=== PATIENT | female | born 1970 | race Caucasian/White ===

== ENCOUNTER 2022-02-18 12:46 | Outpatient (CLI) | payer OTHER, SELFPAY ==
--- NOTE | 2022-02-18 13:00 | CRLHL7_ITS ---
For Patients: As a result of the Cures Act, medical imaging exams and procedure reports are released immediately into your electronic medical record. You may view this report before your referring provider. If you have questions, please contact your health care provider. BILATERAL DIGITAL SCREENING MAMMOGRAM WITH TOMOSYNTHESIS AND COMPUTER-AIDED DETECTION, 02/18/2022 CLINICAL HISTORY: Routine screening exam. COMPARISON: 01/10/2021, 10/03/2019, 07/26/2018, 06/29/2017. TECHNIQUE: Digital mammogram in CC and MLO projections including computer-aided detection (CAD). Tomosynthesis utilized. BREAST COMPOSITION: The breasts are heterogeneously dense, which may obscure small masses. FINDINGS: RIGHT Breast: No suspicious findings. Intact breast implant. LEFT Breast: Post biopsy changes. Focus of possible architectural distortion within the upper LEFT breast 5 cm from the nipple 12-1 o`clock. IMPRESSION: LEFT breast asymmetry/mass. RECOMMENDATIONS: Additional mammographic views of the LEFT breast including three spot compression CC and 3D spot compression MLO, both with implant-displaced. LEFT breast ultrasound may also be required. The [facility] will be contacting the patient to arrange for this additional study. BI-RADS Category 0: Incomplete: Need additional Imaging Evaluation and/or Prior Mammograms for Comparison A lay language report of this examination will be provided to the patient. Dictated by Noman Srivastava MD @ 02/19/2022 8:41:26 AM flores/Dictated by: Noman Srivastava MD @ 02/19/2022 8:41:00 AM (Electronically Signed)
== END 2022-02-18 12:47 | disposition home or self-care (01) ==
LOC: MAMMO 12:48
PROVIDERS: PCP Internal Medicine; Visit Provider Internal Medicine
DX: Z12.31 Encounter for screening mammogram for malignant neoplasm of breast (principal); N63.20 Unspecified lump in the left breast, unspecified quadrant; R92.2 Inconclusive mammogram
CPT/HCPCS: 77063; 77067

== ENCOUNTER 2022-02-20 08:30 | Outpatient (CLI) | payer OTHER, SELFPAY ==
--- NOTE | 2022-02-20 08:45 | CRLHL7_ITS ---
For Patients: As a result of the Cures Act, medical imaging exams and procedure reports are released immediately into your electronic medical record. You may view this report before your referring provider. If you have questions, please contact your health care provider. DIGITAL DIAGNOSTIC LEFT MAMMOGRAM USING TOMOSYNTHESIS AND COMPUTER-AIDED DETECTION, 02/20/2022 LEFT BREAST ULTRASOUND, 02/20/2022 CLINICAL HISTORY: LEFT breast mass/asymmetry. COMPARISON: 02/18/2022, 01/10/2021, 10/03/2019, 07/26/2018. TECHNIQUE: Digital LEFT mammogram in two projections. Tomosynthesis and CAD utilized. Real-time ultrasound imaging of LEFT breast with imaging documentation. Scanning was performed by both the technologist and the radiologist. BREAST COMPOSITION: The breast is heterogeneously dense, which may obscure small masses. FINDINGS: 3D spot compression CC/MLO left breast mammogram submitted. LEFT breast implant intact. Persistent suspicious lesion within the upper LEFT breast 4 cm from the nipple with associated microcalcification. Targeted LEFT breast ultrasound performed at 12 o`clock 4 cm from the nipple. In this location there is an ill-defined area of decreased echogenicity. This is taller than wide and demonstrates distal acoustic shadowing, measuring 1.0 x 0.7 x 0.7 cm. IMPRESSION: Suspicious 1 cm taller than wide ill-defined hypoechoic shadowing lesion LEFT breast 12 o`clock 4 cm from the nipple. RECOMMENDATIONS: Ultrasound-guided core needle biopsy. Results and recommendations discussed with the patient. BI-RADS Category 4: Suspicious A lay language report of this examination will be provided to the patient. Dictated by Noman Srivastava MD @ 02/20/2022 10:01:47 AM jj/Dictated by: Noman Srivastava MD @ 02/20/2022 10:01:00 AM (Electronically Signed)
--- NOTE | 2022-02-20 09:15 | CRLHL7_ITS ---
For Patients: As a result of the Cures Act, medical imaging exams and procedure reports are released immediately into your electronic medical record. You may view this report before your referring provider. If you have questions, please contact your health care provider. PLEASE SEE DIGITAL DIAGNOSTIC LEFT MAMMOGRAM PERFORMED SAME DAY CRL:[email or web address] hearn/Dictated by: Noman Srivastava MD @ 02/20/2022 10:01:00 AM (Electronically Signed)
== END 2022-02-20 08:31 | disposition home or self-care (01) ==
LOC: MAMMO 08:31
PROVIDERS: PCP Internal Medicine; Visit Provider Internal Medicine
DX: N63.20 Unspecified lump in the left breast, unspecified quadrant (principal); R92.8 Other abnormal and inconclusive findings on diagnostic imaging of breast
CPT/HCPCS: 76642; 77065; G0279

== ENCOUNTER 2022-02-25 09:00 | Outpatient (CLI) | payer OTHER, SELFPAY ==
--- NOTE | 2022-02-25 09:15 | CRLHL7_ITS ---
For Patients: As a result of the Century Cures Act, medical imaging exams and procedure reports are released immediately into your electronic medical record. You may view this report before your referring provider. If you have questions, please contact your health care provider. ULTRASOUND-GUIDED BREAST BIOPSY AND POST-BIOPSY DIGITAL MAMMOGRAM FOR BIOPSY MARKER PLACEMENT CLINICAL HISTORY: Suspicious lesion. COMPARISON STUDIES: Mammograms 02/20/2022, 02/18/2022. Ultrasound 02/20/2022. TECHNIQUE: Real-time ultrasound with image documentation was used for targeting the breast lesion. Core biopsy specimens were obtained using an 18 gauge Temno biopsy needle. Post-biopsy CC and ML digital mammograms were obtained to document position of the biopsy marker. CONSENT and TIME OUT: The procedure, risks, and alternatives were explained to the patient and a consent was signed. [place] Protocol was followed including pre-procedure verification that relevant information/documentation was available, reviewed and properly matched to the patient; consent accurate and complete; and equipment and supplies available. Time Out was conducted just prior to starting procedure to verify the four required elements: patient identity, correct side/site marked (if applicable), procedure, relevant images/results properly labeled and displayed (if applicable). PROCEDURE: The patient was positioned supine on the ultrasound table. The breast was prepped with ChloraPrep. 6 cc 1 percent lidocaine used for local anesthesia. Core samples were obtained. A sterile metal biopsy clip was placed percutaneously to sreedhar the lesion position within the breast. The specimens were placed in 10% formalin and sent to the pathology department. Pressure was held on the biopsy site until all bleeding subsided. The skin incision was closed with Steri-Strips. An ice pack was positioned over the biopsy site. Post-biopsy instructions were reviewed with the patient, and a written copy was given to her. LATERALITY: LEFT breast. LESION: Hypoechoic taller than wide lesion measuring 1.0 x 0.7 x 0.7 cm at 12 o`clock 4 cm from the nipple. SUSPICION FOR MALIGNANCY: High. NUMBER OF SAMPLES: 6. BIOPSY CLIP SHAPE: Coil. PROXIMITY OF CLIP TO TARGET: Within/immediately adjacent. IMPRESSION: Ultrasound-guided breast biopsy. When the pathology report is available, an addendum to this report will be made. ACR not applicable Dictated by Noman Srivastava MD @ 02/25/2022 10:10:57 AM/adwoa JOHNNY/Dictated by: Noman Srivastava MD @ 02/25/2022 10:10:00 AM JOHNNY/Dictated by: Noman Srivastava MD @ 02/25/2022 10:10:00 AM ----- ADDENDUM ----- Pathology consistent with invasive lobular carcinoma, grade 2/3. This is concordant. Appropriate action recommended. Pretreatment breast MRI may be useful for further evaluation. Dictated by Noman Srivastava MD @ Feb 25 2022 10:10AM Signed by:?Noman Srivastava MD @02/25/2022 2:45:46 PM (Electronically Signed)
--- NOTE | 2022-02-25 09:45 | CRLHL7_ITS ---
For Patients: As a result of the Century Cures Act, medical imaging exams and procedure reports are released immediately into your electronic medical record. You may view this report before your referring provider. If you have questions, please contact your health care provider. PLEASE SEE LEFT ULTRASOUND-GUIDED BIOPSY OF SAME DAY. CRL:adwoa JOHNNY/Dictated by: Noman Srivastava MD @ 02/25/2022 10:16:00 AM (Electronically Signed)
== END 2022-02-25 09:01 | disposition home or self-care (01) ==
LOC: US 09:01
PROVIDERS: PCP Internal Medicine; Visit Provider Internal Medicine
DX: N63.20 Unspecified lump in the left breast, unspecified quadrant (principal); C50.912 Malignant neoplasm of unspecified site of left female breast; R92.8 Other abnormal and inconclusive findings on diagnostic imaging of breast
CPT/HCPCS: 19083; 77065; 88305; 88360; 88361; A4648; A4649; G0279

== ENCOUNTER 2022-03-05 12:40 | Outpatient (CLI) | payer OTHER, SELFPAY ==
--- NOTE | 2022-03-05 13:00 | CRLHL7_ITS ---
For Patients: As a result of the Century Cures Act, medical imaging exams and procedure reports are released immediately into your electronic medical record. You may view this report before your referring provider. If you have questions, please contact your health care provider. BILATERAL BREAST MRI WITHOUT AND WITH GADOLINIUM, 03/05/2022 CLINICAL HISTORY: New diagnosis LEFT breast cancer. History of benign biopsy LEFT breast in the past with a marker clip in place. The Q-shaped clip zamora the site of the new breast cancer. INDICATION FOR BREAST MRI: Staging of newly diagnosed breast cancer and screening of contralateral breast. Regional lymph nodes will also be assessed. COMPARISON STUDIES: Screening mammograms 01/10/2021, 02/18/2022 with LEFT breast diagnostic mammogram and ultrasound 02/20/2022. LEFT breast biopsy with post clip placement 02/25/2022. CONTRAST: TECHNIQUE: The patient was positioned prone using a breast coil. Multiple imaging sequences were obtained using 1-1.5 mm thick slices with no gap. The image sequences include T2-weighted STIR in the axial plane, T1-weighted nonfat-saturated gradient echo in the axial plane, pre- and post-contrast T1-weighted FLASH 3D with fat suppression in the axial plane, and T1-weighted FLASH high-resolution 3D with fat suppression in the sagittal plane. Image post-processing was performed on a [email or web address] workstation. Complex 3D rendering including maximum intensity projections (MIPS) and volumetric renderings were obtained to optimize visualization of the extent of pathology and relationship to the nipple, skin, and chest wall. This aids in determining feasibility of breast conservation surgery. Subtraction, multiplanar reconstruction, mean curve determination, and angiogenesis mapping were also performed. The study was technically adequate. FINDINGS: Amount of Fibroglandular Tissue: Heterogeneous fibroglandular tissue. Breast Background Enhancement: Marked. RIGHT Breast: Saline breast implant in place. Negative for suspicious mass or non-mass enhancement. LEFT Breast: There is a saline breast implant in place.There is a signal void from benign biopsy site visualized in the more lateral breast. At the site of the new diagnosis of breast cancer in the RIGHT breast 12 o???clock position, 4 cm from the nipple, there is a sigmoid void from the Q-shaped marker clip. At this site, there is approximately 1.5 cm of irregular non-mass enhancement. The remainder of the LEFT breast is negative. Lymph Nodes: There are multiple enlarged lymph nodes in the LEFT axilla suspicious for malignancy. Other Findings: None. IMPRESSIONS AND RECOMMENDATIONS: BI-RADS: Newly diagnosed breast cancer is visualized as a subtle area of non-mass enhancement approximately 1.5 cm surrounding the marker clip. There are abnormal lymph nodes LEFT axilla. RIGHT breast is negative. There are BILATERAL saline implants in placed. Consider ultrasound LEFT axilla with possible biopsy. BI-RADS Category 4: Suspicious Chey Moy M.D. Body/Breast Radiologist [email or web address] Transcribed: 12:55 pm DW/Dictated by: Chey Moy MD @ 03/06/2022 12:40:00 PM (Electronically Signed)
== END 2022-03-05 12:41 | disposition home or self-care (01) ==
LOC: MRI 12:41
PROVIDERS: PCP Internal Medicine; Visit Provider Surgery
DX: C50.912 Malignant neoplasm of unspecified site of left female breast (principal)
CPT/HCPCS: 77049; A9575

== ENCOUNTER 2022-03-10 11:00 | Outpatient (CLI) | payer OTHER, SELFPAY ==
--- NOTE | 2022-03-10 11:15 | CRLHL7_ITS ---
For Patients: As a result of the Century Cures Act, medical imaging exams and procedure reports are released immediately into your electronic medical record. You may view this report before your referring provider. If you have questions, please contact your health care provider. ULTRASOUND-GUIDED LEFT AXILLARY LYMPH NODE BIOPSY CLINICAL HISTORY: LEFT BREAST CANCER WITH ENLARGED LYMPH NODES ON BREAST MRI COMPARISON STUDIES: 02/20/2022 TECHNIQUE: Real-time ultrasound with image documentation was used for targeting the left axillary lymph node lesion. Core biopsy specimens were obtained using an automated gun with a 18-gauge biopsy needle. CONSENT and TIME OUT: The procedure, risks, and alternatives were explained to the patient and a consent was signed. [place] Protocol was followed including pre-procedure verification that relevant information/documentation was available, reviewed and properly matched to the patient; consent accurate and complete; and equipment and supplies available. Time Out was conducted just prior to starting procedure to verify the four required elements: patient identity, correct side/site marked (if applicable), procedure, relevant images/results properly labeled and displayed (if applicable). PROCEDURE: The patient was positioned supine on the ultrasound table. The left axilla was prepped with ChloraPrep. 8 cc 1 percent lidocaine used for local anesthesia. Core samples were obtained. A sterile metal biopsy clip was placed percutaneously to sreedhar the lesion position within the left axilla. The specimens were placed in 10% formalin and sent to the pathology department. Pressure was held on the biopsy site until all bleeding subsided. The skin incision was closed with Steri-Strips. An ice pack was positioned over the biopsy site. Post-biopsy instructions were reviewed with the patient, and a written copy was given to her. LATERALITY: Left axilla LESION: Enlarged left axillary lymph node with mildly prominent hypoechoic cortex. SUSPICION FOR MALIGNANCY: Medium NUMBER OF SAMPLES: 5 BIOPSY CLIP SHAPE: Oval PROXIMITY OF CLIP TO TARGET: Within the left axillary lymph node IMPRESSION: Ultrasound-guided left axillary lymph node biopsy. When the pathology report is available, an addendum to this report will be made. ACR not applicable Dictated by Noman Srivastava MD @ 03/10/2022 1:34:18 PM ----- ADDENDUM ----- IMPRESSION: Pathology is consistent with benign lymph node without metastatic disease. This is concordant. Dictated by Noman Srivastava MD @ Mar 10 2022 1:34PM (Electronically Signed)
== END 2022-03-10 11:01 | disposition home or self-care (01) ==
LOC: US 11:00
PROVIDERS: PCP Internal Medicine; Visit Provider Surgery
DX: N63.20 Unspecified lump in the left breast, unspecified quadrant (principal); R59.9 Enlarged lymph nodes, unspecified
CPT/HCPCS: 38505; 76942; 88305; A4648; A4649

== ENCOUNTER 2022-03-10 13:53 | Outpatient (CLI) | payer OTHER, SELFPAY ==
[2022-03-12 18:57] LABS: Follicle Stimulating Hormone 2.7 IU/L
== END 2022-03-10 13:54 | disposition home or self-care (01) ==
LOC: NFLDREF 13:54
PROVIDERS: PCP Internal Medicine; Visit Provider Physician Assistant
DX: N95.1 Menopausal and female climacteric states (principal)
CPT/HCPCS: 83001

== ENCOUNTER 2022-03-19 06:49 | Day surgery (SDC) | payer OTHER, SELFPAY ==
[2022-03-19] MEDS: LACTATED RINGERS 1000 ML 1,000 ML 100 ML IV (07:00)
[2022-03-19 07:10] VITALS: BP 126/81; PULSE 66; RESP 14; TEMP 36.9; O2SAT 96
[2022-03-19 07:22] VITALS: BMI 27.0
--- NOTE | 2022-03-19 08:00 | CRLHL7_ITS ---
For Patients: As a result of the Century Cures Act, medical imaging exams and procedure reports are released immediately into your electronic medical record. You may view this report before your referring provider. If you have questions, please contact your health care provider. HISTORY: 51-year-old female. Left breast cancer. TECHNIQUE: Following lidocaine injection, 1.04 millicuries of [id number] sulfur colloid was injected in the left breast for sentinel lymph node localization. Images were not obtained. Dictated by Brody Shoemaker MD @ 03/19/2022 9:36:53 AM (Electronically Signed)
--- NOTE | 2022-03-19 08:10 | SUR.PREOP ---
[facility] HERE FOR INJECTION. DR. WONG OK'D INJECTION TO BE DONE WITHOUT HER HERE.
--- NOTE | 2022-03-19 08:13 | SUR.PREOP ---
DREW REMOVED FROM [facility] CELL FOR [employer] [facility] TECH TO USE.
--- NOTE | 2022-03-19 08:14 | SUR.PREOP ---
NURSE HERE TO BRING PATIENT FOR WIRE LOC.
--- NOTE | 2022-03-19 08:15 | CRLHL7_ITS ---
For Patients: As a result of the Century Cures Act, medical imaging exams and procedure reports are released immediately into your electronic medical record. You may view this report before your referring provider. If you have questions, please contact your health care provider. LEFT BREAST WIRE LOCALIZATION USING ULTRASOUND GUIDANCE CLINICAL HISTORY: Left breast cancer at the 12 o`clock position. Biopsy clip is within the mass. LATERALITY: Left breast. LESION: Hypoechoic mass at the 12 o`clock position. TECHNIQUE: The localization wire was placed using real-time ultrasound guidance with image documentation. Cranial-caudal and medial-lateral digital mammograms were obtained after localization wire placement. CONSENT and TIME OUT: The procedure, risks, and alternatives were explained to the patient and a consent was signed. [place] Protocol was followed including pre-procedure verification that relevant information/documentation was available, reviewed and properly matched to the patient; consent accurate and complete; and equipment and supplies available. Time Out was conducted just prior to starting procedure to verify the four required elements: patient identity, correct side/site marked (if applicable), procedure, relevant images/results properly labeled and displayed (if applicable). PROCEDURE: The skin was prepped and draped in normal sterile fashion and 3 cc of 1 percent lidocaine without epinephrine was injected for local anesthesia. The localization wire was placed within targeted breast lesion using ultrasound guidance. The patient tolerated the procedure well. PROXIMITY OF WIRE TO LESION: The wire extends through the center of the mass with tip of the wire hook approximately 9-10 mm past the mass. IMPRESSION: Successful breast wire localization. ACR not applicable. Dictated by Demetrius Berman MD @ 03/19/2022 9:16:27 AM (Electronically Signed)
--- NOTE | 2022-03-19 08:45 | CRLHL7_ITS ---
For Patients: As a result of the Cures Act, medical imaging exams and procedure reports are released immediately into your electronic medical record. You may view this report before your referring provider. If you have questions, please contact your health care provider. PLEASE SEE ULTRASOUND-GUIDED WIRE LOCALIZATION LEFT BREAST PERFORMED SAME DAY CRL:nadiya hearn/Dictated by: Demetrius Berman MD @ 03/19/2022 11:25:00 AM (Electronically Signed)
--- NOTE | 2022-03-19 09:15 | CRLHL7_ITS ---
For Patients: As a result of the Century Cures Act, medical imaging exams and procedure reports are released immediately into your electronic medical record. You may view this report before your referring provider. If you have questions, please contact your health care provider. LEFT BREAST SPECIMEN RADIOGRAPH INDICATION: LEFT specimen radiograph. COMPARISON: Mammograms 03/19/2022. TECHNIQUE: Two-views of specimen. FINDINGS: Two specimen radiographs demonstrating biopsy clip, mass, and wire. IMPRESSION: Specimen radiograph contains mass, biopsy clip, and localization wire. Mass appears to be within the specimen. ACR not applicable Demetrius Berman M.D. Diagnostic/Musculoskeletal Radiologist [email or web address] BUD/jj jj/Dictated by: Demetrius Berman MD @ 03/19/2022 11:27:00 AM (Electronically Signed)
[2022-03-19] MEDS: CEFAZOLIN 2 GM INJ IVP (09:52)
[2022-03-19] MEDS: BUPIVACAINE 0.25% 30 ML INJECTION (10:27)
[2022-03-19] MEDS: ISOSULFAN BLUE 5 ML VIAL 3 ML INJECTION (10:29)
--- NOTE | 2022-03-19 10:40 | SUR.OPER ---
0948 TIME OUT COMPLETED PRIOR TO INJECTION OF ISOSULFAN BLUE FOR SENTINAL NODE BIOPSY PER DR. WONG.
--- NOTE | 2022-03-19 11:39 | PM.GSPRC ---
Operative Note Date of procedure: 03/19/22 Type of Procedure: 1. Left breast lumpectomy, wire localization 2. [place] lymph node left axilla Procedure Description: Prior to arrival in the operating room, the patient was taken to radiology where a wire was placed to localize the previously placed clip. In the preop room she also underwent injection of radiocolloid. The patient was then brought to the operating room where anesthesia was induced. I injected 3 ml of lymphazurin blue and performed breast massage for a period of 5 minutes. The left breast and axilla were prepped and draped in the usual sterile fashion. Timeout was confirmed. Local anesthesia was infiltrated into a curvilinear incision in the 12:00 o'clock position adjacent to the tip of the wire. Using electrocautery, the segment of breast tissue containing the tip of the wire was excised. This was sent for evaluation. Radiology called back and confirmed that the clip and wire were present within the specimen. Pathology then called back and confirmed that the margins were grossly negative, but close (1-2 mm) along the medial edge. An additional 5 mm along the medial edge was taken and sent for permanent pathology. We then elected to perform the sentinel node aspect of the procedure. Using the neoprobe, the area of maximal counts was identified. Local anesthesia was infiltrated into the skin and an incision was made. This was carried down to the subcutaneous tissue using electrocautery. Using a combination of blunt dissection and electrocautery, a hot and blue node was resected. One additional node was resected in a similar fashion, taking care to clip the lymphatics. These were sent to pathology for permanent evaluation. The wounds were irrigated and all irrigant suctioned from the wound. At the lumpectomy site the implant was visualized on the posterior aspect of the incision. There was a thin capsular edge protecting it. The cavity was irrigated with a 50/50 mixture Betadine and saline. This mixture was left in the incision for 3 minutes. Both of the wounds were then closed in layers using absorbable suture, and Dermbond was placed over the wounds. The patient was awakened without incident and taken to PACU in stable condition. Sponge, needle and instrument counts were correct x3 at the termination of the case. Findings: Wire localized left breast lumpectomy, close medial margin with extra tissue sent for permanent. Frozen pathology with negative margins. Two sentinel lymph nodes sent for permanent evaluation. Anesthesia: MAC Surgeon: Aisha Cortes MD Estimated blood loss (mL): 5 Condition: stable Disposition: same day
[2022-03-19 11:49] VITALS: BP 105/55; PULSE 46; RESP 14; TEMP 36.6; O2SAT 99
--- NOTE | 2022-03-19 11:50 | W.ANESCHARGE ---
Anesthesia Charges Start Date/Time Anesthesia Start Date: 03/19/22 Anesthesia Start Time: 09:42 Stop Date/Time Anesthesia Stop Date: 03/19/22 Anesthesia Stop Time: 11:48 Summary Emergency: No
--- NOTE | 2022-03-19 12:06 | W.ANESCHARGE ---
Anesthesia Charges Start Date/Time Anesthesia Start Date: 03/19/22 Anesthesia Start Time: 09:42 Stop Date/Time Anesthesia Stop Date: 03/19/22 Anesthesia Stop Time: 11:48 Summary Emergency: No
[2022-03-19 12:12] VITALS: BP 100/53; PULSE 48; RESP 14; O2SAT 98
[2022-03-19 12:27] VITALS: BP 99/61; PULSE 44; RESP 14; O2SAT 100
--- NOTE | 2022-03-19 13:02 | SUR.PHASEII ---
Dr. Cortes was in to visit with patient before discharge.
== END 2022-03-19 13:18 | disposition home or self-care (01) ==
PROVIDERS: PCP Internal Medicine; Visit Provider Surgery
PROC: (CPT 19301; principal; 2022-03-19 09:30)
DX: C50.912 Malignant neoplasm of unspecified site of left female breast (principal); C77.3 Secondary and unspecified malignant neoplasm of axilla and upper limb lymph nodes; Z17.0 Estrogen receptor positive status [ER+]
CPT/HCPCS: 19301; 38500; 00400; 19285; 38792; 77065; 84703; 88305; 88307; 88342; A9541; C1769; G0279; J0690; J1885; J2250; J2405; J2704; J3010; J3490; J7120

== ENCOUNTER 2022-04-24 09:30 | Outpatient (RCR) | payer OTHER, SELFPAY | END 2023-02-04 23:59 | disposition home or self-care (01) | PROVIDERS: PCP Internal Medicine; Visit Provider Surgery | DX: C50.912 Malignant neoplasm of unspecified site of left female breast (principal); Z51.89 Encounter for other specified aftercare | CPT/HCPCS: 97110; 97140; 97161; 97164; 97165; 97535 ==

== ENCOUNTER 2022-04-29 08:06 | Emergency (ER) | payer OTHER, SELFPAY ==
[2022-04-29] VITALS (8 sets, daily range): BP systolic 115–148; BP diastolic 72–83; PULSE 52–64; RESP 12–20; TEMP 36.9; O2SAT 95–100; BMI 25.8
--- NOTE | 2022-04-29 08:43 | CRLHL7_ITS ---
For Patients: As a result of the Century Cures Act, medical imaging exams and procedure reports are released immediately into your electronic medical record. You may view this report before your referring provider. If you have questions, please contact your health care provider. INDICATION: Chest pain. Clinical signs and symptoms of pulmonary embolus. COMPARISON: None TECHNIQUE: : CT examination of the chest was performed with the uneventful intravenous administration of 95 cc of Isovue 370 while thin axial sections were obtained from above the apices of the lungs to the lung bases. Please note that all CT scans at this facility use dose modulation, iterative reconstruction, and/or weight-based dosing when appropriate to reduce radiation dose to as low as reasonably achievable. FINDINGS: : HEART and MEDIASTINUM: The heart size is normal. There is no mediastinal or hilar adenopathy or mass. There is no pericardial effusion. PULMONARY ARTERIAL CIRCULATION: There is no visible intraluminal filling defect to suggest pulmonary embolus. LUNGS: The lungs show no focal consolidation or mass. The airways appear normal. Trace basilar atelectasis PLEURAL SPACES: There is no pleural effusion, pneumothorax or pleural based mass. VISUALIZED UPPER ABDOMEN: Masslike area of abnormal decreased enhancement in the posterior segment of the right lobe of the liver measuring about 3.2 centimeters. This likely represents a hepatic mass. This does not represent a simple cyst but cannot be further characterized on this study. Follow-up evaluation recommended. There is urolithiasis on the right. OSSEOUS STRUCTURES: Age-appropriate appearance. No acute fracture or destructive process. TUBES and LINES: None. IMPRESSION: 1. There is no indication of pulmonary embolus. 2. Trace basilar atelectasis. No pleural effusion or pneumothorax. 3. Probable 3.2 centimeter right lobe hepatic mass. While this is not fully characterized, it does not appear to represent a simple cyst. Follow-up evaluation is recommended. This is likely large enough to be evaluable by ultrasound. Please note that all CT scans at this facility use dose modulation, iterative reconstruction, and/or weight-based dosing when appropriate to reduce radiation dose to as low as reasonably achievable. Dictated by Jersey Mccall MD @ 04/29/2022 9:34:53 AM (Electronically Signed)
--- NOTE | 2022-04-29 08:49 | ED_ITS ---
HPI - General Adult General Time Seen by Provider: 08:50 Date Seen: 04/29/22 Chief complaint: Chest Pain Stated complaint: chest pain/numbness on left arm Time Seen by Provider: 04/29/22 08:12 Source: patient Mode of arrival: ambulatory Limitations: no limitations History of Present Illness HPI narrative: Patient is a 51-year-old female without significant medical history other than recent diagnosis of breast cancer, for which she has planned have radiation and breast implant removal. The patient reports that she got up at 6 this morning was working on her phone, and about 630 developed some pressure in her mid chest felt a little bit of tingling in her left arm but nothing specific. Patient had no shortness of breath, no diaphoresis, no nausea or vomiting. Patient has not had any heart history, she does not have any family history of heart disease, she is not diabetic, has no elevation lipids. Past history lumpectomy of the left breast implants, breast cancer, sialadenitis Nasal cavity polyp Migraine with aura. She has had no leg swelling edema, bleeding or clotting problems. Related Data Home Medications Medication Instructions Recorded Confirmed fluticasone propionate 93 1 spray intranasal BID PRN 04/02/22 04/02/22 mcg/actuation breath activated aerosol ibuprofen 200 mg tablet 200 mg PO Q6H PRN 04/02/22 04/02/22 Previous Rx's Medication Instructions Recorded naratriptan 2.5 mg tablet 2.5 mg PO ONCE PRN migraine 03/05/22 headache #9 tabs nortriptyline 10 mg capsule 20 mg PO .HS #180 caps 03/05/22 oxycodone 5 mg tablet 5 mg PO Q6H PRN pain #15 tabs 03/19/22 tamoxifen 20 mg tablet 20 mg PO QDAY #90 tabs 04/08/22 Allergies Allergy/AdvReac Type Severity Reaction Status Date / Time No Known Allergies Allergy Unknown Verified 04/29/22 09:22 Review of Systems Status of ROS: Reports: 10 or more systems reviewed and unremarkable except as noted in History and below [facility] Medical History Breast cancer (02/2022) History of coma Swelling of ear Surgical History History of abnormal cervical Papanicolaou smear (06/02/12) History of benign breast biopsy (2012) History of bilateral breast implants (1997) Hx of toe surgery (1994) Family History Family/Other Breast cancer Maternal Grandmother Ovarian cancer Father Skin cancer High blood pressure Diabetes Alcohol dependence Social History Narrative: . 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 Nonsmoker. Alcohol use: Approximately 6 drinks per week. No recreational drug use. Feels safe at home and no concerns with abuse. Smoking Status: Never smoker Do you use any of these nicotine containing products: None Second hand tobacco smoke exposure: No How often do you have a drink containing alcohol: 2-3 times a week How many standard drinks containing alcohol do you have on a typical day: 1 or 2 How often do you have six or more drinks on one occasion: Never AUDIT-C Alcohol total score: 3 Non-prescribed substance use: denies use service: No Exam Narrative: Exam Narrative: Objective: Patient's vital signs unremarkable. Alert orient x3, no distress, still complains of some mild substernal and right sternal tightness. She does located with a finger, and not a generalized area, she has no palpable chest pain to palpation Lungs are clear Heart rhythm regular without murmur Abdomen benign soft HEENT is unremarkable facial asymmetry Pelvis stable Lower extremities unremarkable nose swelling or edema Peripheral perfusion is good, skin warm and dry Const: Vital Signs, click to edit/add: Vital Signs - 24 hr 04/29/22 08:21 04/29/22 08:30 04/29/22 09:00 Temperature 98.5 F Pulse Rate [Apical ] 52 L 54 L 64 Respiratory Rate 20 16 12 Blood Pressure [Ri ght Upper Arm] 127/77 115/72 120/80 Pulse Oximetry 97 95 98 Oxygen Delivery Me thod Room Air Room Air Room Air 04/29/22 09:32 04/29/22 10:00 04/29/22 10:30 Temperature Pulse Rate [Apical ] 62 56 L 55 L Respiratory Rate 20 16 Blood Pressure [Ri ght Upper Arm] 132/79 142/82 H 148/83 H Pulse Oximetry 98 99 100 Oxygen Delivery Me thod Room Air Room Air 04/29/22 12:43 Temperature Pulse Rate [Apical ] 60 Respiratory Rate 18 Blood Pressure [Ri ght Upper Arm] 122/79 Pulse Oximetry 98 Oxygen Delivery Me thod Room Air Course Vital Signs Vital signs: Initial Vital Signs Temperature 98.5 F 04/29/22 08:21 Temperature Source Temporal Artery Scan 04/29/22 08:21 Pulse Rate 52 L 04/29/22 08:21 Pulse Rhythm 04/29/22 08:21 Respiratory Rate 20 04/29/22 08:21 Blood Pressure 127/77 04/29/22 08:21 Blood Pressure Mean 93 04/29/22 08:21 Blood Pressure Position Supine 04/29/22 08:21 Pulse Oximetry 97 04/29/22 08:21 Oxygen Delivery Method 04/29/22 08:21 Vital Signs Temperature 98.5 F 04/29/22 08:21 Pulse Rate 52 L 04/29/22 08:21 Respiratory Rate 20 04/29/22 08:21 Blood Pressure 127/77 04/29/22 08:21 Pulse Oximetry 97 04/29/22 08:21 Oxygen Delivery Method 04/29/22 08:21 Temperature 98.5 F 04/29/22 08:21 Pulse Rate 60 04/29/22 12:43 Respiratory Rate 18 04/29/22 12:43 Blood Pressure 122/79 04/29/22 12:43 Pulse Oximetry 98 04/29/22 12:43 Oxygen Delivery Method 04/29/22 12:43 Medical Decision Making MDM Narrative Medical decision making narrative: Patient is a 51-year-old generally healthy white female with recent diagnosis of breast cancer on the left, or what sounds like early stage. Presents this morning with couple hour history of substernal chest tightness she had some tingling in her left arm. Unclear if this is anxiety related, reflux related, rule out acute coronary syndrome, rule out PE. Patient will get CT scan labs, troponin serially, electrolytes. Aspirin Addendum: Patient on CT scan of the chest has some type of hepatic mass, possibly cyst. With her history of breast cancer the should get an ultrasound and will be ordered. Lab Data Labs: Lab Results 04/29/22 04/29/22 04/29/22 Range/Units 08:44 08:55 08:55 WBC 5.14 (4.50-11.00) K/uL RBC 4.34 (4.00-5.20) m/uL Hgb 13.4 (12.0-16.0) gm/dL Hct 40.8 (33.0-51.0) % MCV 94 (80-100) fL MCH 31 (26-34) pg MCHC 33 (32-36) gm/dL RDW Coeff of Jossue 12.8 (11.5-15.5) % Plt Count 174 (140-440) K/uL Neut % (Auto) 49.6 (42.0-72.0) % Lymph % (Auto) 30.0 (20-44) % Montgomery % (Auto) 9.7 (0.0-11.0) % Eos % (Auto) 10.1 H (0.0-7.0) % Baso % (Auto) 0.4 (0.0-3.0) % Neut # (Auto) 2.55 (1.7-7.0) K/uL Lymph # (Auto) 1.54 (0.90-2.90) K/uL Montgomery # (Auto) 0.50 (0.00-0.90) K/UL Eos # (Auto) 0.50 (0.00-0.50) K/uL Baso # (Auto) 0.02 (0.00-0.30) K/uL Abs Immat Gran (auto) 0.01 (0.00-0.30) K/uL D-Dimer Quant (PE/DVT) 0.80 H (0.00-0.50) ug/ml Sodium (135-149) mmol/L Potassium (3.6-5.1) mmol/L Chloride (96-114) mmol/L Carbon Dioxide (20-32) mmol/L BUN (7-30) mg/dL Creatinine (0.5-1.5) mg/dL Estimated Creat Clear Estimated GFR ml/min Glucose (60-115) mg/dL Calcium (8.4-10.6) mg/dL Total Bilirubin (0.1-1.5) mg/dL Direct Bilirubin (0.0-0.5) mg/dL AST (12-35) U/L ALT (4-35) U/L Alkaline Phosphatase (40-150) U/L Troponin I (0.01-0.04) ng/mL C-Reactive Protein (0.5-1.0) mg/dL NT-Pro-B Natriuret Pep (0-125) PG/mL Total Protein (6.0-8.3) g/dL Albumin (3.3-5.0) g/dL SARS-CoV-2 (PCR) Negative SARS-CoV-2 (Negative) POC Troponin I (0.01-0.04) ng/ml 04/29/22 04/29/22 04/29/22 Range/Units 08:55 08:55 08:55 WBC (4.50-11.00) K/uL RBC (4.00-5.20) m/uL Hgb (12.0-16.0) gm/dL Hct (33.0-51.0) % MCV (80-100) fL MCH (26-34) pg MCHC (32-36) gm/dL RDW Coeff of Jossue (11.5-15.5) % Plt Count (140-440) K/uL Neut % (Auto) (42.0-72.0) % Lymph % (Auto) (20-44) % Montgomery % (Auto) (0.0-11.0) % Eos % (Auto) (0.0-7.0) % Baso % (Auto) (0.0-3.0) % Neut # (Auto) (1.7-7.0) K/uL Lymph # (Auto) (0.90-2.90) K/uL Montgomery # (Auto) (0.00-0.90) K/UL Eos # (Auto) (0.00-0.50) K/uL Baso # (Auto) (0.00-0.30) K/uL Abs Immat Gran (auto) (0.00-0.30) K/uL D-Dimer Quant (PE/DVT) (0.00-0.50) ug/ml Sodium 135 (135-149) mmol/L Potassium 5.0 (3.6-5.1) mmol/L Chloride 105 (96-114) mmol/L Carbon Dioxide 26 (20-32) mmol/L BUN 15 (7-30) mg/dL Creatinine 0.7 (0.5-1.5) mg/dL Estimated Creat Clear 88.01 Estimated GFR 104 ml/min Glucose 103 (60-115) mg/dL Calcium 9.2 (8.4-10.6) mg/dL Total Bilirubin 0.5 (0.1-1.5) mg/dL Direct Bilirubin 0.0 (0.0-0.5) mg/dL AST 30 (12-35) U/L ALT 21 (4-35) U/L Alkaline Phosphatase 78 (40-150) U/L Troponin I (0.01-0.04) ng/mL C-Reactive Protein < 0.5 L (0.5-1.0) mg/dL NT-Pro-B Natriuret Pep 80 (0-125) PG/mL Total Protein 6.6 (6.0-8.3) g/dL Albumin 4.1 (3.3-5.0) g/dL SARS-CoV-2 (PCR) (Negative) POC Troponin I 0.01 (0.01-0.04) ng/ml 04/29/22 Range/Units 10:40 WBC (4.50-11.00) K/uL RBC (4.00-5.20) m/uL Hgb (12.0-16.0) gm/dL Hct (33.0-51.0) % MCV (80-100) fL MCH (26-34) pg MCHC (32-36) gm/dL RDW Coeff of Jossue (11.5-15.5) % Plt Count (140-440) K/uL Neut % (Auto) (42.0-72.0) % Lymph % (Auto) (20-44) % Montgomery % (Auto) (0.0-11.0) % Eos % (Auto) (0.0-7.0) % Baso % (Auto) (0.0-3.0) % Neut # (Auto) (1.7-7.0) K/uL Lymph # (Auto) (0.90-2.90) K/uL Montgomery # (Auto) (0.00-0.90) K/UL Eos # (Auto) (0.00-0.50) K/uL Baso # (Auto) (0.00-0.30) K/uL Abs Immat Gran (auto) (0.00-0.30) K/uL D-Dimer Quant (PE/DVT) (0.00-0.50) ug/ml Sodium (135-149) mmol/L Potassium (3.6-5.1) mmol/L Chloride (96-114) mmol/L Carbon Dioxide (20-32) mmol/L BUN (7-30) mg/dL Creatinine (0.5-1.5) mg/dL Estimated Creat Clear Estimated GFR ml/min Glucose (60-115) mg/dL Calcium (8.4-10.6) mg/dL Total Bilirubin (0.1-1.5) mg/dL Direct Bilirubin (0.0-0.5) mg/dL AST (12-35) U/L ALT (4-35) U/L Alkaline Phosphatase (40-150) U/L Troponin I < 0.01 L (0.01-0.04) ng/mL C-Reactive Protein (0.5-1.0) mg/dL NT-Pro-B Natriuret Pep (0-125) PG/mL Total Protein (6.0-8.3) g/dL Albumin (3.3-5.0) g/dL SARS-CoV-2 (PCR) (Negative) POC Troponin I (0.01-0.04) ng/ml Discharge Plan Discharge Clinical Impression: Chest tightness Patient Disposition: Home w/ Parent or Adult Condition: Improved Additional Instructions: Light activity, follow up with oncologist regarding MRI scan of abdomen to check liver and kidneys and compared to the CT scan she had done today. Light activity, fluids, would recommend Prilosec [id number] 1 tablet a day 20 mg for the next couple of weeks. Return to ED sooner problems concerns difficulties. Activity Level: Light activity Discharge Diet: Regular Prescriptions: No Action nortriptyline 10 mg capsule 20 mg PO .HS Qty: 180 3RF naratriptan 2.5 mg tablet 2.5 mg PO ONCE PRN (Reason: migraine headache) Qty: 9 11RF Rx Instructions: max 5 mg in a 24 hour period fluticasone propionate 93 mcg/actuation aerosol breath activated 1 spray intranasal BID PRN Rx Instructions: into each nostril ibuprofen 200 mg tablet 200 mg PO Q6H PRN oxycodone 5 mg tablet 5 mg PO Q6H PRN (Reason: pain) Qty: 15 0RF tamoxifen 20 mg tablet 20 mg PO QDAY Qty: 90 3RF Rx Instructions: Start 2 weeks after radiation is completed Follow Up/Referrals: Dianne Amin MD [Primary Care Provider] - Stand Alone Forms: Alicanto Info Instructions
--- OUTSIDE RECORDS SUMMARY | 2022-04-29 08:52 | XMS_ITS | Encounter Summary ---
:1970 Author Organization [facility] Address [address] [place] [address] Care Team Providers Name Role Phone Unavailable Primary Care Provider Unavailable Reason for Visit Appointment Request (Routine) - Closed Specialty Diagnoses / Procedures Referred By Contact Refer red To Contact Radiation Oncology Diagnoses Malignant neoplasm of unspecified site of left female breast (HCC) Metastatic Left Breast Cancer Female Seda Bowman M.D. [facility] Procedures [facility] [address] [place] [address] Referral ID Status Reason Start Date Expiration Date Visits Requ ested Visits Authorized [id number] Closed 04/18/2022 04/18/2023 1 1 Encounter Details Date Type Department Care Team Description 04/20/2022 - Hospital Encounter Department of Lamar Moore Neoplasm 04/21/2022 Radiation Oncology [facility] in [place], [address] [place] [address] Female Left (HCC) [place], [place] (Primary Dx) [address] [facility] [address] [place], [place] [phone] [id number] (Work) [phone] Social History Tobacco Use Types Packs/Day Years Used Date Smoking Tobacco: Never Smokeless Tobacco: Never Alcohol Habits Answer Date Recorded How often do you have a drink containing alcohol? 2-3 times a week 04/14/2022 How many drinks containing alcohol do you have on a 1 or 2 04/14/2022 typical day when you are drinking? How often do you have six or more drinks on one Never 04/14/2022 occasion? Comment: Not asked Social Isolation Answer Date Recorded In a typical week, how many times do you talk on the phone O nce a week 04/14/2022 with family, friends, or neighbors? How often do you get together with friends or relatives? Onc e a week 04/14/2022 How often do you attend advent or sabianism services? Never 04/14/2022 Do you belong to any clubs or organizations such as advent N o 04/14/2022 groups, unions, fraternal or athletic groups, or school groups? How often do you attend meetings of the clubs or Never 04/14/2022 organizations you belong to? Are you now , , , , never Mar ried 04/14/2022 or living with a partner? Physical Activity Answer Date Recorded On average, how many days per week do you engage in moderate to 2 days 04/14/2022 strenuous exercise (like walking fast, running, jogging, dancing, swimming, biking, or other activities that cause a light or heavy sweat)? On average, how many minutes do you engage in exercise at th is 50 min 04/14/2022 level? Stress Answer Date Recorded Do you feel stress - tense, restless, nervous, or Only a lit tle 04/14/2022 anxious, or unable to sleep at night because your mind is troubled all the time - these days? Financial Resource Strain Answer Date Recorded How hard is it for you to pay for the very basics like Not h keith at all 04/14/2022 food, housing, medical care, and heating? Intimate Partner Violence Answer Date Recorded Within the last year, have you been afraid of your partner o r No 04/14/2022 ex-partner? Within the last year, have you been humiliated or emotionall y No 04/14/2022 abused in other ways by your partner or ex-partner? Within the last year, have you been kicked, hit, slapped, or No 04/14/2022 otherwise physically hurt by your partner or ex-partner? Within the last year, have you been raped or forced to have any No 04/14/2022 kind of sexual activity by your partner or ex-partner? Food Insecurity Answer Date Recorded Within the past 12 months, you worried that your food would Never true 04/14/2022 run out before you got money to buy more. Within the past 12 months, the food you bought just didn't N ever true 04/14/2022 last and you didn't have money to get more. Transportation Needs Answer Date Recorded In the past 12 months, has lack of transportation kept you f rom No 04/14/2022 medical appointments or from getting medications? In the past 12 months, has lack of transportation kept you f rom No 04/14/2022 meetings, work, or getting things needed for daily living? Housing Stability Answer Date Recorded In the last 12 months, was there a time when you were not ab le No 04/14/2022 to pay the mortgage or rent on time? In the last 12 months, how many places have you lived? 1 04/14/2022 In the last 12 months, was there a time when you did not hav e a No 04/14/[address] sleep or slept in a intermediate (including now)? Education Answer Date Recorded What is the highest level of Professional school degree (e.g ., , 04/14/2022 school you have completed or the DDS, DVM, DESTINI) highest degree you have received? Sex Assigned at Date Recorded Female 04/14/2022 11:44 AM CDT documented as of this encounter Last Filed Vital Signs Vital Sign Reading Time Taken Comments Blood Pressure 126/73 04/20/2022 9:21 AM CDT Pulse 52 04/20/2022 9:21 AM CDT Temperature 36.4 ??C (97.6 ??F) 04/20/2022 9:21 AM CDT Respiratory Rate - - Oxygen Saturation - - Inhaled Oxygen Concentration - - Weight 73.6 kg (162 lb 4.1 oz) 04/20/2022 9:21 AM CDT Height - - Body Mass Index - - documented in this encounter Medications at Time of Discharge Medication Sig Dispensed Refills Start Date End Date FLUTICASONE PROPIONATE Administer 1 spray 0 03/04 NASAL into each nostril as needed. levonorgestreL-ethinyl Take 1 tablet by mouth 0 0 07/22/2011 estrad daily. (AVIANE,ALESSE,LESSINA) 0.1-20 mg-mcg per tablet naratriptan (AMERGE) 2.5 Take 2.5 mg by mouth 0 mg tablet daily. nortriptyline HCl Take 20 mg by mouth 0 (NORTRIPTYLINE ORAL) daily. tamoxifen (NOLVADEX) 20 Take 20 mg by mouth as 0 04/08/2022 mg tablet directed. documented as of this encounter Consult Notes Lamar Moore M.D. - 04/20/2022 9:30 AM CDT RADIATION ONCOLOGY CONSULTATION SUBJECTIVE REQUESTING PROVIDER Seda Bowman M.D., Medical Oncology REASON FOR CONSULT Asked to see patient by Dr. Bowman to render an opinion regarding radiation therapy options for her resected left breast cancer in the setting of 25 year old saline implants. HISTORY OF PRESENT ILLNESS # Left sided breast cancer Mrs. Diaz Ogden is a very pleasant 51 year old female with a newly diagnosed resected left breast cancer in the setting of 25 year old saline implants who presents now to discuss radiation options. Her oncologic history was reviewed with the patient and is as follows: Oncology History Malignant Neoplasm Of Breast Central Female Left (HCC) 02/18/2022 Imaging Bilateral screening mammogram demonstrated a focus of possible architectural distortion within the upper left breast, 5 cm from the nipple, 12 to 1 o'clock position. No suspicious findings in the right breast. Intact breast implant. BI- RADS 0. 02/20/2022 Imaging Left breast diagnostic mammogram with tomosynthesis demonstrated an intact implant. Persistent suspicious lesion within the upper left breast, 4 cm from the nipple with associated microcalcification. Targeted left breast ultrasound at the 12 o'clock position, 4 cm from the nipple demonstrated an ill-defined area of decreased echogenicity, measuring 1.0 x 0.7 x 0.7 cm. BI-RADS 4. 02/25/2022 Biopsy/Pathology Ultrasound-guided breast biopsy of the left breast lesion at the 12 o'clock position, 4 cm from thenipple was performed. PATHOLOGY: A) LEFT BREAST, 12:00, 4 CM FROM NIPPLE, ULTRASOUND-GUIDED CORE BIOPSY: 1. Invasive lobular carcinoma a. [place] grade: II of III; [place] score: 6 of 9 b. Angio-lymphatic invasion: Absent c. Associated LCIS: Present 2. Breast Ancillary Testing: a. Hormone Receptors: Estrogen receptor: Positive (97%, strong staining) Progesterone receptor: Positive (97%, strong staining) b. HER2 by IHC: Negative (0 by manual morphometry) c. Ki-67: 24% by image analysis 03/05/2022 Imaging MRI of the bilateral breasts demonstrated a saline breast implant in place in the left breast. In the left breast at the 12 o'clock position, 4 cm from the nipple, was 1.5 cm irregular non-mass enhancement. The remainder of the left breast was negative. In the right breast was a saline breast implantin place. Negative for suspicious mass or non-mass enhancement. Multiple enlarged lymph nodes in theleft axilla, suspicious for malignancy. BI-RADS 4. 03/10/2022 Biopsy/Pathology Ultrasound-guided left axillary lymph node biopsy was performed. PATHOLOGY: A) LEFT AXILLA, LYMPH NODE, ULTRASOUND-GUIDED CORE BIOPSY: 1. Fragments of benign lymph node 2. Negative for metastatic carcinoma in this sampling 03/17/[address] Mickie Pearson who recommended proceeding with left breast lumpectomy on March 19, 2022. Plan to allow this to heal for approximately 4 weeks before proceeding with bilateral implant removal, capsulectomy, and implant replacement. Then allow her to heal for another 4-6 weeks before beginning radiation therapy. Will discuss the plan with Dr. Cortes and the patient's Radiation Oncologist to ensure that the plan does not interfere with the recommended cancer treatment. 03/19/2022 Surgery and Procedures Left breast lumpectomy and left axillary sentinel lymph node biopsy was performed by Dr. Aisha Cortes. PATHOLOGY: A) LEFT AXILLARY SENTINEL LYMPH NODES #1, EXCISION: 1. Micrometastatic carcinoma involving one of two lymph nodes (1/2) a. Largest metastatic tumor deposit measures 1.2 mm b. No extranodal extension identified B) LEFT AXILLARY SENTINEL LYMPH NODE #2, EXCISION: 1. Negative for metastatic malignancy in one lymph node (0/1) 2. Biopsy clip and core biopsy associated changes identified C) LEFT BREAST, MEDIAL MARGIN, EXCISION: 1. Lobular carcinoma in situ (LCIS), classic type 2. Negative for invasive malignancy D) LEFT BREAST, WIRE-LOCALIZED LUMPECTOMY: 1. Invasive lobular carcinoma, [place] grade II of III a. Size: 13 mm b. Core biopsy site is associated with tumor 2. Lobular carcinoma in situ (LCIS), classic and florid types with necrosis 3. Margins: a. Invasive carcinoma is 1 mm from the medial margin and 2 mm from the inferior and anterior margins b. Florid LCIS is 4 mm from the posterior margin c. See part C for final medial margin status 4. Breast Ancillary Testing: Performed on prior case ([id number]) a. Hormone Receptors: Estrogen receptor: Positive (97%, strong staining) Progesterone receptor: Positive (97%, strong staining) b. HER2 by IHC: Negative (0 by manual morphometry) c. Ki-67: 24% SPECIMEN Procedure: Excision (less than total mastectomy) Specimen Laterality: Left TUMOR Tumor Site: Clock position : 12 o'clock Tumor Site: Distance from nipple (Centimeters): 4 cm Histologic Type: Invasive lobular carcinoma Histologic Grade ([place] Histologic Score): Glandular (Acinar) / Tubular Differentiation: Score 3 Nuclear Pleomorphism: Score 2 Mitotic Rate: Score 1 Overall Grade: Grade 2 (scores of 6 or 7) Tumor Size: Greatest dimension of largest invasive focus (Millimeters): 13 mm Tumor Focality: Single focus of invasive carcinoma Ductal Carcinoma In Situ (DCIS): Not identified Lobular Carcinoma In Situ (LCIS): Present Lymphovascular Invasion: Not identified Dermal Lymphovascular Invasion: No skin present Microcalcifications: Present in non-neoplastic tissue Treatment Effect in the Breast: No known presurgical therapy MARGINS Margin Status for Invasive Carcinoma: All margins negative for invasive carcinoma Distance from Invasive Carcinoma to Closest Margin: 2 mm Closest Margin(s) to Invasive Carcinoma: Anterior Closest Margin(s) to Invasive Carcinoma: Inferior REGIONAL LYMPH NODES Regional Lymph Node Status: : Tumor present in regional lymph node(s) Number of Lymph Nodes with Macrometastases: 0 Number of Lymph Nodes with Micrometastases: 1 Number of Lymph Nodes with Isolated Tumor Cells: 0 Size of Largest Kayli Metastatic Deposit: 1.2 mm Extranodal Extension: Not identified Total Number of Lymph Nodes Examined (sentinel and non-sentinel): 3 Number of [place] Nodes Examined: 3 PATHOLOGIC STAGE CLASSIFICATION (pTNM, AJCC 8th Edition) pT Category: pT1c Regional Lymph Nodes Modifier: (sn): [place] node(s) evaluated. pN Category: pN1mi ADDITIONAL FINDINGS Additional Findings: Florid LCIS with necrosis located 4 mm from the posterior margin 04/06/2022 Genetic Testing and Tumor Genotyping Oncotype DX recurrence score result of 17. Distant recurrence risk at 9 years with AI or Zarate alone 15%. Group average absolute chemotherapy benefit, no apparent benefit. INTERVAL HISTORY The patient reports that she is doing well recovering from the surgery, but is a bit confused about her implants. She knows that likely her implants should have been exchanged a couple of years ago. Yet, she is having no difficulties with her current implants. She did not notice any changes in her breasts prior to the screening mammogram. She is protecting her right breast slightly, but denies painor other concerns. She has an appointment with a genetics counselor later this month. She denies a history of prior radiation therapy or connective tissue disorders. Her ECOG performancestatus is 0. REVIEW OF SYSTEMS Review of systems was negative except as documented above. PATIENT REPORTED SYMPTOM SCREEN PAIN (Scale: 0 = no pain; 10 = worst pain you can imagine): 0 ALLERGIES, MEDICATIONS, PAST MEDICAL HISTORY, PAST SURGICAL HISTORY, SOCIAL HISTORY AND FAMILY HISTORY PER [facility] EMR; These were reviewed. 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 OBJECTIVE BP 126/73 (BP Location: Right arm, Patient Position: Sitting, Cuff Size: Regular) Pulse (!) 52 Temp 36.4 ??C (Temporal) Wt 73.6 kg PHYSICAL EXAMINATION General: Well-developed, well-nourished and in no apparent distress. Lymph: No palpable cervical, supraclavicular, infraclavicular, or axillary adenopathy. Spine: There is no tenderness to palpation of the spine. Lungs: Clear to auscultation bilaterally. Heart: Regular rate and rhythm. Extremities: No clubbing, cyanosis, or edema. Breasts: Examined in the sitting and supine positions. Saline implants bilaterally. The right breasthas an everted nipple with no palpable masses, no overlying skin changes, and no expressible nipple discharge. The left breast has an everted nipple with no palpable masses, no overlying skin changes, and no expressible nipple discharge. DIAGNOSTICS I have reviewed the available imaging, operative and pathology reports as described above. ASSESSMENT / PLAN #1 Stage IA, pT1c N1mi (sn) M0, G2, ER/SC+, HER2-, Oncotype DX 17) infiltrating lobular carcinoma ofthe left breast s/p lumpectomy We discussed the findings above and below in this note with the patient. We had a vicky, yet compassionate, discussion regarding radiation options for breast cancer. We discussed her radiation treatment alternatives including tangents vs high tangents. We discussed the challenges that implants can pose. She understands that her implants are old and the concern is that they will eventually need to be exchanged. I spoke with Dr. Pearson who indicated this would be easier to do prior to radiation therapy. I explained to the patient that ideally we would begin adjuvant radiation therapy by 16 to 20 weeks at the most, but that the sooner the better. She would very much like to stay with Dr. Pearson given her expertise and may move a planned vacation, but will discuss this further with Dr. Pearson's office. I would see her back 3 weeks after the exchange for radiation planning. We would likely need to put her right arm down for our simulation to get a better angle with the implant. We also discussed proton therapy should we not be able to get a good angle or spare her heart. She knows that this is only done in [place]. The patient???s clinical and pathologic scenario was reviewed with the patient in detail. The rationale for radiotherapy was reviewed with the patient. The logistics of radiotherapy simulation were reviewed with the patient utilizing the simulation booklet. We discussed treatment planning and potential strategies for minimizing dose to critical structures. The logistics of radiotherapy treatment werereviewed with the patient. Treatments are administered daily Wednesday through Wednesday, with each treatment lasting approximately 10-20 minutes. Our team approach was reviewed with the patient. We discussed the rationale, risks, side effects and adjuvant goals of photon radiation therapy. We discussed the acute as well as residential risks, including, but not limited to fatigue, skin erythema/desquamation, sore throat, fibrosis of the breast/chest wall, lymphedema, small risks of bone fracture, radiation pneumonitis, cardiac disease, and secondary malignancies. We also discussed the risks to her implants including contracture, asymmetry, wound healing problems, and even implant loss. We discussed possibly utilizing a breath hold technique for treatment if this is better and she is able. We discussed various radiation options including hypofractionated vs conventional treatments. At this point we are leaning towards conventional adjuvant high tangent radiotherapy. Again, with her right arm at her side pending how her new implants look in terms of angles for our radiation tangents. I also spoke with Dr. Cortes during our consultation. My thanks to Sebastian Doyle and Lili for the opportunity to participate in this patient's care. EDUCATION Ready to learn, no apparent learning barriers were identified; learning preferences include listening. Explained diagnosis and treatment plan; patient expressed understanding of the content. CONSENT Discussed the risks, benefits, alternatives, and the necessity of other members of the healthcare team participating in the procedure. All questions answered and consent given. I personally spent 70 minutes in care of the patient today. Time includes both non face to face and face to face patient care. Signed by: Lamar Moore M.D. 04/20/2022 Radiation Oncology [facility] [address] [place] [address] documented in this encounter Miscellaneous Notes Addendum Note - Zulay Wadsworth, C.N.A. - 04/20/2022 9:30 AM CDT Encounter addended by: Zulay Wadsworth C.N.AAlina on: 04/21/2022 12:44 PM Actions taken: Letter saved documented in this encounter Plan of Treatment Not on filedocumented as of this encounter Visit Diagnoses Diagnosis Malignant Neoplasm Of Breast Central Fem toni Left (HCC) - Primary documented in this encounter
--- OUTSIDE RECORDS SUMMARY | 2022-04-29 08:52 | XMS_ITS | Encounter Summary ---
:1970 Author Organization [facility] Address [address] [place] [address] Care Team Providers Name Role Phone Unavailable Primary Care Provider Unavailable Encounter Details Date Type Department Care Team Description 04/17/2022 Clinical Communication Visit Review in [place], [place] [address] [place] [address] Social History Tobacco Use Types Packs/Day Years Used Date Smoking Tobacco: Never Smokeless Tobacco: Never Tobacco Cessation: Counseling Given: Not Answered Alcohol Habits Answer Date Recorded How often [...] week 04/14/2022 How often do you attend caodaism or buddhism services? Never 04/14/2022 Do you belong to any clubs or organizations such as caodaism N o 04/14/2022 groups, unions, fraternal or [...] place to sleep or slept in a usp (including now)? Education Answer Date Recorded What is the highest level of Professional school degree (e.g ., , 04/14/2022 school you have completed or the DDS, DVM, DESTINI) highest degree you have received? Sex Assigned at Date Recorded Female 04/14/2022 11:44 AM CDT documented as of this encounter Plan of Treatment Not on filedocumented as of this encounter Visit Diagnoses Not on filedocumented in this encounter
--- OUTSIDE RECORDS SUMMARY | 2022-04-29 08:52 | XMS_ITS | Clinical Summary ---
:1970 Author Organization [employer] [facility] [employer] [facility] [place] [address] Care Team Providers Name Role Phone Dianne Amin MD Primary Care Provider Allergies No known active allergies Medications Medication Sig Dispensed Refills Start Date End Date Status levonorgestrel-ethinyl Take 1 tablet by 84 tablet 3 07/22/2011 Active estrad, 0.1-20 mg-mcg, mouth once (LUTERA, 28,) 0.1-20 daily. mg-mcg tablet ciprofloxacin (CIPRO) Take 1 tablet by 12 tablet 0 08/14/2011 Active 250 mg tablet mouth 2 times daily. As needed for severe diarrhea. nortriptyline TAKE 2 CAPSULES 180 capsule 1 12/28/2011 Active (PAMELOR) 10 mg BY MOUTH EVERY capsule NIGHT AT BEDTIME SUMAtriptan (IMITREX) Take 1 tablet by 8 tablet 2 03/04/2012 Active 100 mg tablet mouth every 2 hours if needed for Migraine. Max dose: 200mg per 24 hrs. Active Problems Problem Noted Date LGSIL (low grade squamous intraepithelial dysplasia) 0 08/17/2011 Need for hepatitis A vaccination 07/22/2011 Migraine 05/08/2009 Encounters Date Type Specialty Care Team Description 03/19/2022 Lab Requisition Aisha Cortes MD 03/19/2022 Lab Requisition Aisha Cortes MD 03/16/2022 Travel 03/10/2022 Lab Requisition Unknown, Doctor 03/05/2022 Transcribe Orders Aisha Cortes MD 03/05/2022 Transcribe Orders Aisha Cortes MD 02/25/2022 Lab Requisition Unknown, Doctor from Last 3 Months Immunizations Name Administration Dates Next Due Hepatitis A (Adult) 07/22/2011 Tdap 12/19/2007 Family History Medical History Relation Name Comments Alcohol/Drug Father etoh Cancer Father skin cancer-david noma Cancer-prostate Father Diabetes Father Hypertension Father Cancer Maternal Grandmother ovarian can cer, Other Mother ovarian cyst, no t cancer, had endometriosis Cancer-breast Other other great paternal G M age 99 Cancer-colon No Family History Relation Name Status Comments Father Maternal Grandmother Mother Other other Social History Tobacco Use Types Packs/Day Years Used Date Never Smoker Smokeless Tobacco: Never Used Alcohol Use Standard Drinks/Week Comments Yes 2.5 (1 standard drink = 0.6 oz pure alco hol) occ. Alcohol Habits Answer Date Recorded How often do you have a drink containing alcohol? Not asked How many drinks containing alcohol do you have on a typical Not asked day when you are drinking? How often do you have six or more drinks on one occasion? No t asked Comment: occ. 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 Respiratory Rate - - Oxygen Saturation - - Inhaled Oxygen Concentration - - Weight 69.9 kg (154 lb) 08/14/2011 8:01 AM 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 Height 167.6 cm (5' 6) 07/22/2011 8:08 AM 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 Body Mass Index 24.86 07/22/2011 8:08 AM 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 Plan of Treatment Upcoming Encounters Date Type Specialty Care Team Description 05/04/2022 Telemedicine Flaquito Berry, MS, [facility] [address] [place] [address] (Wo rk) Health Maintenance Due Date Last Done Comments COVID-19 vaccine series (#1) 1970 Depression screening for age 12+ 1981 BMI (ht and wt on same day) for 1987 age 18+ Hepatitis C screening for age 1005/14/1987 18-79 Colonoscopy through age 75 2014 Mammogram for age 45-75 2014 01/15/2011 (Postponed) Lipids for age 45-75 07/22/2016 07/22/2011 Tetanus booster 12/18/2017 12/19/2007 Zoster (shingles) series for age 1005/14/2019 50+ (1 of 2) Influenza for age 50-64 03/19/2022 Pap test for age 21-65 08/29/2024 08/29/2021, 08/29/2021, 07/05/2020, Additional history exists Tdap Completed 12/19/2007 Procedures Procedure Name Priority Date/Time Associated Diagnosis Comme nts LAB TRACKING EVENT Routine 03/19/2022 11:04 AM CDT LAB TRACKING EVENT Routine 03/19/2022 10:50 AM CDT PATH TISSUE EXAM Routine 03/19/2022 10:31 AM Resu lts for this CDT procedure are i n the results section. [facility] AP SEND-OUT Routine 03/19/2022 10:31 AM CDT LAB TRACKING EVENT Routine 03/10/2022 11:40 AM CDT PATH BREAST CORE Routine 03/10/2022 11:40 AM Resu lts for this BIOPSY CDT procedure are i n the results section. LAB TRACKING EVENT Routine 02/25/2022 9:45 AM CDT PATH BREAST CORE Routine 02/25/2022 9:45 AM Resul ts for this BIOPSY CDT procedure are i n the results section. from Last 3 Months Results LAB TRACKING EVENT (03/19/2022 11:04 AM CDT)Only the most recent of4 results within the time period is included. Specimen Anatomical Collection Method Collection Time Receive d Time (Source) Location / / Volume Laterality Other (Other) Client Collect / 03/19/2022 11:04 2021 Unknown AM CDT 12:18 PM CDT Aisha Cortes MD LAB BILL ONLY Performing Organization Address City/State/ZIP Code Phon e Number [facility] [address] [place] [address] LABORATORY-CENTRAL 2000 LABORATORY MSO AP SEND-OUT (03/19/2022 10:31 AM CDT) Specimen Anatomical Collection Method Collection Time Receive d Time (Source) Location / / Volume Laterality Other (Left 03/19/2022 10:31 03/27/2022 3:01 Breast) AM CDT PM CDT Aisha Cortes MD LABORATORY Performing Organization Address City/State/ZIP Code Phon e Number [facility] [address] [place] [address] LABORATORY-CENTRAL 1999 LABORATORY PATH TISSUE EXAM (03/19/2022 10:31 AM CDT) Component Value Ref Test Analysis Performed Pathologis t Range Method Time At Signature Case Report Pathology Report ?Case: [id number] ? RAFFAELE Authorizing Provider: ??Aisha Ayala MD ??Collected: ? 03/19/2022 1050 ? 2 12:34 HEALTH Ordering Location: ? [facility] CENTRAL LAB ?Received: ?03/20/2022 1032 ? PM CDT [facility] BORATORY- Pathologist: ? Tricia Powell, ? CENTRAL ? MD ? LABORATORY Specimens: ?? A) - Left Axil magui [place] Lymph Node 1, node 1 ? B) - Left Axillary [place] Lymph Node 2, node 2 ? C) - Left Breast Lump, left breast lumpectomy ? D) - Left Breast ? Amendment 04/07/2022 - The [facility] tissue was submitted 2 12:34 HEALTH to [facility] for PM CDT LABORATO RY- Oncotype DX for CENTRAL Breast Cancer LABORATORY testing. Please see attached scanned report. Final Diagnosis A) LEFT AXILLARY SENTINEL LYMPH NODES #1, EXCISION: [facility] Amendment 1. Micrometastatic carcinoma involving one of two lymph no bailee (/) 2 12:34 HEALTH electronically ?a. Largest metastatic tumor deposit measures 1.2 mm PM CDT LABORATORY- signed by ?b. No extranodal extension identified CENTRAL Tricia Powell LABORATORY MD Krishna on B) LEFT AXILLARY SENTINEL LYMPH NODE #2, EXCISION: 04/07/2022 at 1. Negative for metastatic malignancy in one lymph node (0/ ) 12:33 PM 2. Biopsy clip and core biopsy associated changes identified Electronically signed by C) LEFT BREAST, MEDIAL MARGIN, EXCISION: Tricia Powell 1. Lobular carcinoma in situ (LCIS), classic type MD Krishna on 2. Negative for invasive malignancy 03/25/2022 at 3:34 PM D) LEFT BREAST, WIRE-LOCALIZED LUMPECTOMY: 1. Invasive lobular carcinoma, Cygnet grade II of III ? a. Size: 13 mm ? b. Core biopsy site is associated with tumor 2. 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 Margins: ? a. Invasive carcinoma is 1 mm from the medial margin and 2 mm from the inferior and anterior margins ? b. Florid LCIS is 4 mm from the posterior margin ?c. See part C for final medial margin status 4. Breast Ancillary Testing: Performed on prior case ([id number]) ? a. Hormone Receptors: ? Estrogen receptor: Positive (97%, strong stai dileep) ? Progesterone receptor: Positive (97%, strong staining) ? b. HER2 by IHC: Negative (0 by manual morphometry) ? c. Ki-67: 24% Clinical Left breast invasive [facility] Information lobular carcinoma, 2 12:34 [facility] Cygnet grade II PM CDT LABORATORY - with LCIS CENTRAL ([id number]). Benign LABORATOR Y left axillary lymph node biopsy ([id number]). Gross A) Received in formalin, lab eled with the patient's name and sentinel node lymph #1, is a 3.5 x 1.5 x 0.7 cm portion of adipose containing two possible lymph nodes measuring 1.2 x 0.9 x 0.6 cm and 1.0 [facility] Description x 0.8 x 0.6 cm. A previous biopsy clip is not identified within the specimen. The lymph nodes are trisected and entirely submitted in two cassettes (1 node per cassette). 2 12:34 [facility] PM CDT LABORATORY- Time removed from patient: 1050 CENTRAL Time placed in formalin: 1103 LABORATORY Date removed and placed in formalin: 03/20/2022 Cold ischemic time < 60 melissa roberto. The specimen was fixed in formalin for a minimum of 6 hours and not longer than 72 hours. B) Received in formalin, lab eled with the patient's name and sentinel lymph node #2, is a single 2.0 x 1.9 x 0.7 cm lymph node. A previous biopsy clip is identified within the specimen. The lymph node is sectioned into 4 slices and entirely submitted in two ca ssettes. Time removed from patient: 1111 Time placed in formalin: 1113 Date removed and placed in formalin: 03/20/2022 Cold ischemic time < 60 melissa roberto. The specimen was fixed in formalin for a minimum of 6 hours and not longer than 72 hours. C) Received in formalin, lab eled with the patient's name and medial margin left breast lumpectomy, is a 7 g, 5.6 x 2 x 1.2 cm unoriented excision of yellow-boudreaux fibrofatty breast tissue. ??The 2 broad surfaces are arbitrarily ink ed black and blue. ??The specimen is serially sectioned revealing fibrofatty cut surfaces consisting of approximately 80% adipose tissue and 20% boudreaux fibrous tissue. ??No disc rete lesions are identified. ??The specimen is entirely submitted in 6 cassettes. Time removed from patient: 1111 Time placed in formalin: 1117 Date removed and placed in formalin: 03/20/2022 Cold ischemic time < 60 melissa roberto. The specimen was fixed in formalin for a minimum of 6 hours and not longer than 72 hours. AMAURY 03/20/2022 D) Received fresh, labeled w ith the patient's name and left breast mass, is a 26 g, 6.1 (M-L) x 5 (S-I) x 2.9 (A-P) cm wire-localized portion of fibrofatty breast tissue, previously inked by the surgical team in the OR as follows: Anterior--Bamberg Posterior--Black Superior--Blue Inferior--Red Medial--Green Lateral--Yellow The specimen is serially sec tioned from lateral to medial into 8 slices, revealing an indurated mass with biopsy clip in slices 7 and 8, measuring 1.0 (M-L) x 0.9 (S-I) x 0.8 (A-P) cm in greatest dimens ion. ??The mass is somewhat vague and grossly comes to within 0.1-0.2 cm of the medial margin (medial endcap), and is 0.3 cm from the posterior margin, 0.5 cm from the inferior margin, 0.6 cm from the a nterior margin, 1.5 cm from the superior margin, greater than 2 cm from the lateral margin. ??The remainder of the specimen is comprised of 30% dense fibrous tissue and 70% adipose tissue. ? Window Decorator sections are submitted as follows: 1. ? Sections perpendicular to lateral margin (from slic e 1) 2. ? Superior third of slice 2 3. ? Section from slice 3 with posterior margin 4. ? Middle third of slice 4 5. ? Section from slice 5 with posterior margin 6. ? Section from 6 with posterior margin, a djacent to lesion/biopsy site 7-10. ??Composite slice 7 with lesion and biopsy site 11-14. Sections showing marilyn sandra of lesion with relation to medial margin (composite slice 8) A digital image has been uploaded. Time removed from patient: 1031 Time placed in formalin: 1104 Date removed and placed in formalin: 03/19/2022 Cold ischemic time < 60 melissa roberto. The specimen was fixed in formalin for a minimum of 6 hours and not longer than 72 hours. TRB 03/19/2022 Intraoperative D) BREAST, LEFT, LUMPECTOMY, INTRAOPERATIVE CONSULTATION (Gross Evaluation Only by Telepathology): [facility] Consultation 1. 1 cm induration with coil clip grossly identified 2 12:34 HEALTH 2. Margins are grossly negative by 1-2 mm (the closest margin is medial) CDT LABORATORY- ?? WANN Elizabeth Garcia MD, 03/19/2022 11:03 AM LABORATORY Specimen received in [facility] 10:48 AM and examined by telepathology with pathologist diploma dental assistant Kiah. on site Intraoperative consultation, which may have included frozen section preparation, gross specimen examination, and/or cytology touch imprints/smears, was performed by a pathologist during the surgical procedure. ??This testing was performed at: [address] [address] Microscopic The final diagnosis is based on microscopic examination of appropriate sections of all specimens. AL FREDO Description 2 12:34 HEALTH A) Cytokeratin AE1/AE3 immun ohistochemical stain was performed on blocks A1 and A2 with appropriate controls and the results support the diagnosis. CDT LABORATORY- B) Cytokeratin AE1/AE3 immun ohistochemical stain was performed on blocks B1 and B2 with appropriate controls and the results support the diagnosis. CENTRAL D) An E-cadherin immunohisto chemical stain was performed on block D8 with appropriate controls and shows negative staining within the in situ and invasive tumor cells, supporting a lobular phenotype. LABORATORY SYNOPTIC INVASIVE CARCINOMA OF THE BREAST: Resection [facility] REPORTING Breast.Invasive.Res - All Specimens 2 12 :34 HEALTH 8th Edition - Protocol posted: 07/04/2021 CDT LABORATORY- CENTRAL SPECIMEN LABORATORY ?? Procedure: ?Excision (less than total mastectomy) ?? Specimen Laterality: ?Left TUMOR ?? Tumor Site: ?Clock position ?? : ?12 o'clock Tumor Site: ?Distance from nipple (Centimeters): 4 cm Histologic Type: ?Invasive lobular carcinoma Histologic Grade (Riya Histologic Score): ? Glandular (Acinar) / Tubular Differentiation: ?Score 3 ?? Nuclear Pleomorphism: ?Score 2 ?? Mitotic Rate: ?Score 1 ?? Overall Grade: ?Grade 2 (scores of 6 or 7) Tumor Size: ?Greatest d imension of largest invasive focus (Millimeters): 13 mm Tumor Focality: ?Single focus of invasive carcinoma Ductal Carcinoma In Situ (DCIS): ?Not identified Lobular Carcinoma In Situ (LCIS): ?Present Lymphovascular Invasion: ?Not identified Dermal Lymphovascular Invasion: ?No skin present Microcalcifications: ?Present in non-neoplastic tissue Treatment Effect in the Breast: ?No known presurgical t herapy MARGINS Margin Status for Invasive Carcinoma: ?All margins negative for invasive carcinoma ?? Distance from Invasive Carcinoma to Closest Margin: ?2 mm ?? Closest Margin(s) to Invasive Carcinoma: ?Anterior ?? Closest Margin(s) to Invasive Carcinoma: ?Inferior REGIONAL LYMPH NODES Regional Lymph Node Status: ? : ?Tumor present in regional lymph node(s) ? Number of Lymph Nodes with Macrometastases: ?0 ? Number of Lymph Nodes with Micrometastases: ?1 ? Number of Lymph Nodes with Isolated Tumor Cells: ?0 ? Size of Largest Kayli Metastatic Deposit: ?1.2 mm ? Extranodal Extension: ?Not identified ?? Total Number of Lymph Nodes Examined (sentinel and non-sentinel): ?3 ?? Number of [place] Nodes Examined: ?3 PATHOLOGIC STAGE CLASSIFICATION (pTNM, AJCC 8th Edition) ?? Reporting of pT, pN, and (when applicable) pM categories is based on information available to the pathologist at the time the report is issued. As per the AJCC (Chapter 1, 8th Ed.) it is the managin g physician? s responsibility to establish the final pathologic stage based upon all pertinent information, including but potentially not limited to this pathology report. pT Category: ?pT1c Regional Lymph Nodes Modifier: ?(sn): [place] node(s) evaluated. pN Category: ?pN1mi ADDITIONAL FINDINGS Additional Findings: ?F lorid LCIS with necrosis located 4 mm from the posterior margin Comment(s): ?Block(s) for potential future ancillary te sting: D13 Additional [facility] Information Interpreted at [facility], Central Laboratory - [address], [place] [address] 2 12:34 HEALTH PM CDT LABORATORY- CENTRAL LABORATORY Specimen Anatomical Collection Method Collection Time Receive d Time (Source) Location / / Volume Laterality Other (Left 03/19/2022 10:50 03/20/2022 Axillary AM CDT 10:32 AM CDT [place] Lymph Node 1) Specimen 03/19/2022 10:50 03/20/2022 (specimen) (Left AM CDT 10:34 AM CD T Axillary [place] Lymph Node 2) Specimen 03/19/2022 10:50 03/20/2022 (specimen) (Left AM CDT 10:34 AM CD T Breast Lump) Specimen 03/19/2022 10:31 03/24/2022 3:23 (specimen) (Left AM CDT PM CDT Breast) Narrative This result has an attachment that is no t available. Aisha Cortes MD PATHOLOGY/CYTOLOGY Performing Organization Address City/State/ZIP Code Phon e Number [facility] [address] [place] [address] LABORATORY-CENTRAL 2000 LABORATORY PATH BREAST CORE BIOPSY (03/10/2022 11:40 AM CDT)Only the most recent of2 resultswithin the time period is included. Component Value Ref Test Analysis Performed At [facility] gist Range Method Time Signature Case Report Pathology Report ?Case: [id number] ? 03/11/2022 [facility] Authorizing Provider: ??Unkn own, Doctor ?Collected: ? 03/10/2022 1140 ? 3:18 PM CDT [facility] Ordering Location: ? [facility] ?Received: ?03/10/2022 2112 ? CHANO GARCIA Pathologist: ? Noman Fernandez MD ? ENTRAL Specimen: ?Left Breast C ore Ultrasound Biopsy ? LABORATORY Final A) LEFT AXILLA, LYMPH NODE, ULTRASOUND-GUIDED CORE BIOPSY: 03/11/2022 [facility] Electronically Diagnosis 1. Fragments of benign lymph node 3:18 P M CDT HEALTH signed by Darrius, 2. Negative for metastatic carcinoma in this sampling LABORATORY-C Zena Schroeder MD ENTRAL for Noman Fernandez MD o n 03/11/2022 at 3:18 PM Comment A) This is an image-guided b reast biopsy. The pathologic findings should be correlated with radiologic and clinical findings prior to treatment decisions. 03/11/2022 [facility] 3:18 PM T HEALTH Case seen in consultation with Dr. Rizo. LABORATORY-C ENTRAL LABORATORY Clinical Left axillary lymph node, 2.2 x 0.9 x 1.5 cm. 03/11/2022 [facility] Information 3:18 PM CDT HEALTH Recently diagnosed left peter [facility] invasive lobular carcinoma, Cygnet grade II ([id number]) LABORATORY-C ENTRAL Had covid vaccine booster in same arm 2 weeks ago LABORATORY Gross A) Label: ??Patient's name and left axilla lymph node 03/11/2022 [facility] Description Description: 5 Fibrofatty core biopsies 3:18 PM [facility] Size: 0.6-0.9 cm in length by 0.2 cm in diameter LABORATORY-C Ink color: Black ENTRAL The specimen is submitted in toto in one cassette. LABORATORY Cold ischemic time: Less she n 60 minutes, meets current ASCO/CAP guidelines. ?? The specimen was fixed in formalin for a minimum of 6 hours and not longer than 72 hours. Ridge Cerda 03/10/2022 9:15 PM Microscopic The final diagnosis is based on microscopic examination of appropriate sections of all specimens. 03/11/2022 [facility] Description 3:18 PM [facility] A) The presence of black ink is confirmed on tissue sections. Additional levels were examined. LABORATORY-C ENTRAL LABORATORY Additional [facility]11[facility]20[facility] Information Interpreted at [facility], Central Laboratory - [address], [place] [address] 3:18 PM [facility] LABORATORY-C ENTRMO LABORATORY Specimen (Source) Anatomical Collection Method Collection Time Re ceived Time Location / / Volume Laterality Other (Left Breast 03/10/2022 11:40 03/10 9:12 Core Ultrasound AM CDT PM CDT Biopsy) Doctor Unknown PATHOLOGY/CYTOLOGY Performing Organization Address City/State/ZIP Code Phon e Number [facility] [address] 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
--- OUTSIDE RECORDS SUMMARY | 2022-04-29 08:52 | XMS_ITS | Clinical Summary ---
:1970 Author Organization [facility] Address [address] [place] [address] Care Team Providers Name Role Phone Unavailable Primary Care Provider Unavailable Source Comments Patient records contain information from all sites at [facility]. For routine questions regarding patient records, call [phone] during business hours, M-F 8:00 AM - 5:00 PM Central Time. Record requests for emergency care only can be directed to [phone] at any time.[facility] Allergies No known active allergies Medications Medication Sig Dispensed Refills Start Date End Date Status FLUTICASONE PROPIONATE Administer 1 spray 0 03/04/20 22 Active NASAL into each nostril as needed. nortriptyline HCl Take 20 mg by 0 Active (NORTRIPTYLINE ORAL) mouth daily. levonorgestreL-ethinyl Take 1 tablet by 0 07/22/2011 Active estrad mouth daily. (AVIANE,ALESSE,LESSINA ) 0.1-20 mg-mcg per tablet naratriptan (AMERGE) Take 2.5 mg by 0 Active 2.5 mg tablet mouth daily. tamoxifen (NOLVADEX) Take 20 mg by 0 04/08/2022 Active 20 mg tablet mouth as directed. Active Problems Problem Noted Date Malignant Neoplasm Of Breast Central Female Left 04/15 Cancer Staging: Pathologic stage from 03/19/2022: Stage IA (pT1c, pN1mi(sn), cM0, G2, ER+, WA+, HER2-, Oncotype DX score: 17) - Unsigned Encounters Date Type Specialty Care Team Description 04/20/2022 - Hospital Encounter Radiation Oncology Lamar Moore Malignant Neoplasm 04/21/2022 [place] Of Breast Centr al Female Left (HC C) (Primary Dx) 04/17/2022 Clinical Admitting/Central Communication Scheduling from Last 3 Months Family History Medical History Relation Name Comments Skin cancer Father Ovarian cancer Maternal Grandmother Relation Name Status Comments Father Maternal Grandmother Other paternal great g randmother had breast cancer and lived to [facility] Social History Tobacco Use Types Packs/Day Years [...] week 04/14/2022 How often do you attend restorationism or mosque services? Never 04/14/2022 Do you belong to any clubs or organizations such as restorationism N o 04/14/2022 groups, unions, fraternal or [...] place to sleep or slept in a penitentiary (including now)? Education Answer Date Recorded What is the highest level of Professional school degree (e.g ., , 04/14/2022 school you have completed or the DDS, DVM, DESTINI) highest degree you have received? Sex Assigned at Date Recorded Female 04/14/2022 11:44 AM CDT Last Filed Vital Signs Vital Sign Reading [...] - - Body Mass Index - - Plan of Treatment Health Maintenance Due Date Last Done Comments CT Colonography 1970 Cervical Cancer Screening 1970 Cologuard 1970 Colonoscopy 1970 Colorectal Cancer Screening 1970 FIT 1970 Fasting Glucose for 1970 Diabetes Screening HIV Screening 1970 Hepatitis B Vaccines (1 of 1970 3 - 3-dose series) Hepatitis C Screening 1970 Lipid (Cholesterol) 1970 Screening Depression Screening 07/19/2021 (Annual PHQ-2) Influenza Vaccine (#1) 2022 04/09/2021, 04/17/2020, 04/26/2019, Additional history exists COVID-19 Vaccine (5 - 04/27/2022 03/02/2022, 05/25/2021, Booster for Pfizer series) 10/18/2020, Additiona l history exists Mammogram 03/19/2023 03/19/2022, 03/19/2022, 02/25/2022, Additional history exists DTaP,Tdap,and Td Vaccines 08/29/2031 08/29/2021, 12/19/2007 (3 - Td or Tdap) Zoster Vaccines Completed 11/06/2021, 06/19/2021 Pneumococcal vaccine (0-64 Aged Out No lo nger eligible years) based on patient 's age to complete this topic Medical Devices Implanted Type Area Pipe Supervisor Device Shelf Model / Identifier Expiration Serial / Date Lot Breast Breast Bilateral: Implant Implant Breast Procedures Procedure Name Priority Date/Time Associated Diagnosis Comme nts OUTSIDE MG Routine 03/19/2022 10:45 AM Results for this MAMMOGRAM CDT procedure are i n the results section. OUTSIDE MG Routine 03/19/2022 8:55 AM Results f or this MAMMOGRAM CDT procedure are i n the results section. OUTSIDE US BREAST Routine 03/19/2022 8:30 AM Resu lts for this CDT procedure are i n the results section. OUTSIDE US Routine 03/10/2022 11:30 AM Results for this CDT procedure are i n the results section. OUTSIDE MR BREAST Routine 03/05/2022 1:35 PM Resu lts for this CDT procedure are i n the results section. OUTSIDE MG Routine 02/25/2022 9:45 AM Results f or this MAMMOGRAM CDT procedure are i n the results section. OUTSIDE US BREAST Routine 02/25/2022 9:15 AM Resu lts for this CDT procedure are i n the results section. OUTSIDE US BREAST Routine 02/20/2022 9:25 AM Resu lts for this CDT procedure are i n the results section. OUTSIDE MG Routine 02/20/2022 8:55 AM Results f or this MAMMOGRAM CDT procedure are i n the results section. from Last 3 Months Results MM surgical specimen LT-Outside Mammogram (03/19/2022 10:45 AM CDT)Only the most recent of4 resultswithin the time period is included. Specimen (Source) Anatomical Location Collection Method / Collectio n Time Received Time / Laterality Volume Narrative IIMS - 04/09/2022 3:04 PM CDT This order has been created and auto-finalized to support the import of outside images. If available, original i nterpretation can be found on the Media Tab in Chart Review, in Document V iewer, or as an image in QREADS. If a re-interpretation or overread is re quired please follow defined workflow. ?? Provider Not In System IMG BI PROCEDURES Performing Organization Address City/State/ZIP Code Phon e Number IIMS IIMS NA US BREAST NEEDLE LOC LT-Outside US Breast (03/19/2022 8:30 AM CDT)Only the most recent of3 resultswithin the time period is included. Specimen (Source) Anatomical Location Collection Method / Collectio n Time Received Time / Laterality Volume Narrative IIMS - 04/09/2022 3:04 PM CDT This order has been created and auto-finalized to support the import of outside images. If available, original i nterpretation can be found on the Media Tab in Chart Review, in Document V iewer, or as an image in QREADS. If a re-interpretation or overread is re quired please follow defined workflow. ?? Provider Not In System IMG BI PROCEDURES Performing Organization Address [facility] Code Phon e Number RUSS SOLANO NA US biopsy lymph axillary-Outside US (03/10/2022 11:30 AM CDT) Specimen (Source) Anatomical Location Collection Method / Collectio n Time Received Time / Laterality Volume Narrative IINY - 04/09/2022 3:04 PM CDT This order has been created and auto-finalized to support the import of outside images. If available, original i nterpretation can be found on the Media Tab in Chart Review, in Document V iewer, or as an image in QREADS. If a re-interpretation or overread is re quired please follow defined workflow. ?? Provider Not In System IMG US PROCEDURES Performing Organization Address [facility] Phon e Number RUSS SOLANO NA MR breast BI wo/w con-Outside MR Breast (03/05/2022 1:35 PM CDT) Specimen (Source) Anatomical Location Collection Method / Collectio n Time Received Time / Laterality Volume Narrative IINY - 04/09/2022 3:06 PM CDT This order has been created and auto-finalized to support the import of outside images. If available, original i nterpretation can be found on the Media Tab in Chart Review, in Document V iewer, or as an image in QREADS. If a re-interpretation or overread is re quired please follow defined workflow. ?? Provider Not In System IMG MRI PROCEDURES Performing Organization Address [facility] Phon e Number RUSS SOLANO NA from Last 3 Months Insurance Payer Benefit Plan / Subscriber ID Effective Phone Address T ype Group Dates Online [facility] [id number] 2020-Pres [phone] [address] [facility] [address] [place] [address]
[2022-04-29 09:08] LABS: Basophils Absolute Auto 0.02 K/uL (0.00-0.30); Basophils Percent Auto 0.4 % (0.0-3.0); Eosinophils Percent Auto 10.1 % (0.0-7.0); Hematocrit 40.8 % (33.0-51.0); Hemoglobin* 13.4 gm/dL (12.0-16.0); Immature Granulocytes Abs Auto 0.01 K/uL (0.00-0.30); Lymphocytes Absolute Auto 1.54 K/uL (0.90-2.90); Mean Corpuscular HGB Conc 33 gm/dL (32-36); Mean Corpuscular Hemoglobin 31 pg (26-34); Mean Corpuscular Volume 94 fL (80-100); Monocytes Percent Auto 9.7 % (0.0-11.0); Neutrophils Absolute Auto 2.55 K/uL (1.7-7.0); Neutrophils Percent Auto 49.6 % (42.0-72.0); Platelet Count* 174 K/uL (140-440); RDW Coefficient of Variation % 12.8 % (11.5-15.5); Red Blood Count 4.34 m/uL (4.00-5.20); White Blood Count* 5.14 K/uL (4.50-11.00)
[2022-04-29 09:11] LABS: Slide Review Reflex No
[2022-04-29 09:24] LABS: Albumin* 4.1 g/dL (3.3-5.0)
[2022-04-29 09:26] LABS: Troponin, Point-of-Care* 0.01 ng/ml (0.01-0.04)
[2022-04-29 09:27] LABS: Alanine Aminotransferase* 21 U/L (4-35); Alkaline Phosphatase* 78 U/L (40-150); Aspartate Amino Transferase* 30 U/L (12-35); Bilirubin Total* 0.5 mg/dL (0.1-1.5); Total Protein* 6.6 g/dL (6.0-8.3)
[2022-04-29] MEDS: ASPIRIN 81 MG TAB.CHEW 324 MG PO (09:33)
[2022-04-29] MEDS: GI COCKTAIL (VISC LIDO/ANTACID) 30 ML PO (09:33)
[2022-04-29 09:35] LABS: NT Pro B Type NatriureticPept* 80 PG/mL (0-125)
[2022-04-29 09:37] LABS: Chloride* 105 mmol/L (96-114); Sodium* 135 mmol/L (135-149)
[2022-04-29 09:40] LABS: Blood Urea Nitrogen* 15 mg/dL (7-30); Carbon Dioxide* 26 mmol/L (20-32); Creatinine* 0.7 mg/dL (0.5-1.5); Est. Creatinine Clearance* 88.01; Estimated Glomerular Filt Rate 104 ml/min
[2022-04-29 09:41] LABS: Calcium* 9.2 mg/dL (8.4-10.6); Glucose* 103 mg/dL (60-115)
[2022-04-29 09:44] LABS: C Reactive Protein* < 0.5 mg/dL (0.5-1.0)
[2022-04-29 09:45] LABS: SARS PCR* Negative SARS-CoV-2 (Negative)
--- NOTE | 2022-04-29 10:22 | CRLHL7_ITS ---
For Patients: As a result of the Century Cures Act, medical imaging exams and procedure reports are released immediately into your electronic medical record. You may view this report before your referring provider. If you have questions, please contact your health care provider. INDICATION: Hepatic cyst. COMPARISON: CT chest 04/29/2022. TECHNIQUE: Real time pitts scale imaging and color Doppler analysis was performed of the right upper quadrant. FINDINGS: Liver: The liver is normal in size measuring 15.8 cm in length. Normal echogenicity. There is a 3.5 x 2.9 x 1.5 cm solid echogenic lesion in the superior right hepatic lobe with no significant internal vascularity. This corresponds with the lesion seen on CT. Additional smaller echogenic lesion in the inferior right hepatic lobe measuring 1.1 x 1.1 x 1.2 cm. Gallbladder: No stones or sludge. No wall thickening or pericholecystic fluid. Negative sonographic Wilkinson sign. Bile ducts: No biliary dilation. The common bile duct measures 3 mm in diameter. Pancreas: Normal where seen. Right kidney: The right kidney measures 8.9 cm in length. No hydronephrosis or calculus. There are two subcentimeter nonshadowing echogenic lesions in lower pole cortex (image 73). Vascular: Normal caliber proximal abdominal aorta. The IVC is patent. IMPRESSION: 1. Two solid echogenic lesions in the right hepatic lobe. The larger lesion in the superior right hepatic lobe corresponds with the lesion seen on CT. These most likely represent hemangiomas but could be further evaluated with contrast-enhanced MRI if clinically indicated. 2. Two nonshadowing echogenic lesions in the lower pole of the right kidney could represent angiomyolipomas but are indeterminate. These could also be further evaluated with MRI. Dictated by Socorro Peña MD @ 04/29/2022 12:20:47 PM (Electronically Signed)
[2022-04-29 11:27] LABS: Troponin I* < 0.01 ng/mL (0.01-0.04)
== END 2022-04-29 12:50 | disposition home or self-care (01) ==
PROVIDERS: Emergency Provider Family Medicine; PCP Internal Medicine
DX: R07.89 Other chest pain (principal)
CPT/HCPCS: 36415; 71260; 76705; 80048; 80076; 83880; 84484; 85025; 85379; 86140; 87635; 93005; 94761; 99284; 99285; A9270; Q9967

== ENCOUNTER 2022-05-18 07:58 | Outpatient (CLI) | payer OTHER, SELFPAY ==
--- OUTSIDE RECORDS SUMMARY | 2022-05-18 08:00 | XMS_ITS | Encounter Summary ---
:1970 Author Organization [facility] Address [address] [place] [id number] Care Team Providers Name Role Phone Unavailable Primary Care Provider Unavailable Encounter Details Date Type Department Care Team Description 04/17/2022 Clinical Communication Visit Review in [place], [place] [address] [place] [address] Social History Tobacco Use Types [...] more drinks on one Never 04/14/2022 occasion? Social Isolation Answer Date Recorded In a typical week, how many times do you talk on the phone O nce a week 04/14/2022 with family, friends, or neighbors? How often do you get together with friends or relatives? Onc e a week 04/14/2022 How often do you attend hoahaoism or hoahaoism services? Never 04/14/2022 Do you belong to any clubs or organizations such as hoahaoism N o 04/14/2022 groups, unions, fraternal or [...] as of this encounter Plan of Treatment Upcoming Encounters Date Type Specialty Care Team Description 06/08/2022 Appointment Radiation Oncology Segun Moore M.D. [address] [place], [place] [phone] (May rk) 06/08/2022 Appointment Radiation Oncology Segun Moore M.D. [address] [place], [place] [phone] (Wo jesse) documented as of this encounter Visit Diagnoses Not on filedocumented in this encounter
--- OUTSIDE RECORDS SUMMARY | 2022-05-18 08:00 | XMS_ITS | Encounter Summary ---
:1970 Author Organization [facility] Address [address] [place] [address] Care Team Providers Name Role Phone Unavailable Primary Care Provider Unavailable Reason for Referral Outpatient (Routine) - Authorized Specialty Diagnoses / Procedures Referred By Contact Refer red To Contact Radiation Oncology Lamar Moore [facility] Olga Solano M.D. [address] [place] [address] Referral ID Status Reason Start Date Expiration Date Visits V isits Requested Authorized [id number] Authorized 04/30/2022 04/29/2025 1 1 Specialty Diagnoses / Procedures Referred By Contact Refer red To Contact Lamar Moore M.D. [facility] Region [address] [place], [place] [address] Referral ID Status Reason Start Date Expiration Date Visits Requ ested Visits Authorized Outpatient (Routine) - Authorized Specialty Diagnoses / Procedures Referred By Contact Refer red To Contact Radiation Oncology Lamar Moore [facility] Olga Solano M.D. [address] [place] [address] Referral ID Status Reason Start Date Expiration Date Visits V isits Requested Authorized [id number] Authorized 04/30/2022 04/29/2025 10 10 Specialty Diagnoses / Procedures Referred By Contact Refer red To Contact Lamar Moore M.D. [facility] Region [address] [place], [place] [address] Referral ID Status Reason Start Date Expiration Date Visits Requ ested Visits Authorized Radiation Therapy (Routine) - Authorized Specialty Diagnoses / Procedures Referred By Contact Refer red To Contact Diagnoses Malignant Neoplasm Of Breast Central Female Left (HCC) Lamar Moore M.D. [facility] Region Procedures Management Visit [address] [place], [place] [address] Referral ID Status Reason Start Date Expiration Date Visits V isits Requested Authorized [id number] Authorized 04/30/2022 04/30/2023 10 10 Radiation Therapy (Routine) - Pending Review Specialty Diagnoses / Procedures Referred By Contact Refer red To Contact Diagnoses Malignant Neoplasm Of Breast Central Female Left (HCC) Lamar Moore M.D. [facility] Procedures Prior Auth Rad Tx [address] [place], [place] [address] Referral ID Status Reason Start Date Expiration Date Visits V isits Requested Authorized [id number] Pending 06/15/2022 04/30/2023 1 1 Review Radiation Therapy (Routine) - Authorized Specialty Diagnoses / Procedures Referred By Contact Refer red To Contact Diagnoses Malignant Neoplasm Of Breast Central Female Left (HCC) Lamar Moore M.D. [facility] Region Procedures Initial Rad Onc Treatment Planning CT Simulation [address] [place] [address] Referral ID Status Reason Start Date Expiration Date Visits V isits Requested Authorized [id number] Authorized 04/30/2022 04/30/2023 1 1 Encounter Details Date Type Department Care Team Description 04/30/2022 Orders Only Department of Lamar Moore N eoplasm Of Radiation Oncology in [place] Breast Central Female [place] [address] [facility] Left (HCC) (Primary [address] [place], [place]x) [place] [phone] Social History Tobacco Use Types Packs/Day Years [...] week 04/14/2022 How often do you attend mormonism or mormonism services? Never 04/14/2022 Do you belong to any clubs or organizations such as mormonism N o 04/14/2022 groups, unions, fraternal or [...] place to sleep or slept in a [place] (including now)? Education Answer Date Recorded What [...] Radiation Oncology Segun Moore M.D. [address] [place], [place] [phone] (Wo rk) 06/08/2022 Appointment Radiation Oncology Segun Moore M.D. [address] [place], [place] [phone] (Wo rk) Scheduled Orders Name Type Priority Associated Order Schedule Diagnoses Prior Auth Rad Tx Radiation Oncology Routine Malignant Neoplas m Ordered: 04/30/2022 Of Breast Central Female Left (HCC) Management Visit Radiation Oncology Routine Malignant Neoplasm 10 Occurrences Of Breast Central starting 1 Female Left (HCC) until 04/18 Scheduled Referrals Name Type Priority Associated Order Schedule Diagnoses Radiation Oncology Outpatient Referral Routine Malignant Neopl asm Expected: 2022 - PRO education Of Breast Central (Approx imate), visit Female Left (HCC) Expires: 0 07/29/2022 Radiation Oncology Outpatient Referral Routine 10 Occurrences nurse visit starting 2021 (clinic) until Radiation Oncology Outpatient Referral Routine Malignant Neopl asm Expected: 05/07/2022 - Nurse education Of Breast Central (Appr oximate), visit (clinic) Female Left (HCC) Expires: 04/30/2023 Radiation Oncology Outpatient Referral Routine Ex pected: 06/08/2022 office visit (Approximate), (clinic) Expires: 2022 documented as of this encounter Visit Diagnoses Diagnosis Malignant Neoplasm Of Breast Central Fem toni Left (HCC) - Primary documented in this encounter
--- OUTSIDE RECORDS SUMMARY | 2022-05-18 08:00 | XMS_ITS | Encounter Summary ---
:1970 Author Organization [facility] Address [address] [place] [address] Care Team Providers Name Role Phone Unavailable Primary Care Provider Unavailable Encounter Details Date Type Department Care Team Description 04/30/2022 Orders Only Department of Oncology in Seda Bowman M.D. [place], [place] [address] [place] [address] [place] [phone] [place] [address] [phone] Social History Tobacco Use Types Packs/Day Years [...] week 04/14/2022 How often do you attend episcopalian or baptism services? Never 04/14/2022 Do you belong to any clubs or organizations such as episcopalian N o 04/14/2022 groups, unions, fraternal or [...] place to sleep or slept in a correction (including now)? Education Answer Date Recorded What [...] Radiation Oncology Segun Moore M.D. [address] [place], [place] [phone] (May molina) 06/08/2022 Appointment Radiation Oncology Segun Moore M.D. [address] [place], [place] [phone] (May molina) documented as of this encounter Visit Diagnoses Not on filedocumented in this encounter
--- OUTSIDE RECORDS SUMMARY | 2022-05-18 08:00 | XMS_ITS | Clinical Summary ---
:1970 Author Organization [employer] [facility] [facility] [place] [address] Care Team Providers Name Role Phone Dianne [...] Encounters Date Type Specialty Care Team Description 2022 Telephone Flaquito Berry, Results ( Cancer genetic MS, CGC testing) 05/06/2022 Orders Only Lab, [facility] 05/06/2022 Travel 05/04/2022 Phone Office Visit Flaquito Berry, Cou nseling (Cancer MS, CGC counseling) 05/04/2022 Travel 05/04/2022 Orders Only Flaquito Berry, <No scans attached> MS, CGC 05/01/2022 Travel 04/30/2022 Telephone Kenn Dewitt Cancer genetic s 04/29/2022 Telephone DewittKenn rhodes Cancer genetic s 03/19/2022 Lab Requisition Aisha Cortes MD 03/19/2022 [...] Assigned at Date Recorded Not on file COVID-19 Exposure Response Date Recorded In the last 10 days, have you been in contact with No / Unsu re 05/06/2022 1:24 PM CDT someone who was confirmed or suspected to have Coronavirus/COVID-19? Obstetrics History Para Term AB IAB SAB Ectopic Multiple Living Live Births 1 1 Date Outcome GA Total Labor/2nd/3rd Weight Sex Delivery Anes PTL Nguyen A 1 A5 Name Clin Labor AB Last Filed Vital Signs Vital Sign Reading Time Taken Comments Blood Pressure 115/77 08/14/2011 8:01 AM MECHANIC INSULATOR Pulse 66 08/14/2011 8:01 AM MECHANIC INSULATOR Temperature 36.8 ??C (98.2 ??F) 07/21/2010 5:29 PM MECHANIC INSULATOR Respiratory Rate - - Oxygen Saturation - - Inhaled Oxygen Concentration - - Weight 69.9 kg (154 lb) 08/14/2011 8:01 AM MECHANIC INSULATOR Height 167.6 cm (5' 6) 07/22/2011 8:08 AM MECHANIC INSULATOR Body Mass Index 24.86 07/22/2011 8:08 AM MECHANIC INSULATOR Plan of Treatment Health Maintenance Due Date Last Done Comments Depression screening for age 12+ 1981 BMI (ht and wt on same day) for 1987 age 18+ Hepatitis C screening for age 1005/14/1987 18-79 Colonoscopy through age 75 2014 Mammogram for age 45-75 2014 01/15/2011 (Postponed) Lipids for age 45-75 07/22/2016 07/22/2011 Tetanus booster 12/18/2017 12/19/2007 Zoster (shingles) series for age 1005/14/2019 50+ (1 of 2) Influenza for age 50-64 03/19/2022 COVID-19 vaccine series (5 - 04/27/2022 03/02/2022, 021, Booster for Pfizer series) 10/18/2020, Additiona l history exists Pap test for age 21-65 08/29/2024 08/29/2021, 08/29/2021, 07/05/2020, Additional history exists Tdap Completed 12/19/2007 Procedures Procedure Name Priority Date/Time Associated Diagnosis Comme nts CANCER GENETIC SEND Routine 05/04/2022 Malignant neoplasm Re sults for this OUT of left breast in procedure are in female, estrogen the results receptor positive, section. unspecified site of breast (HC) LAB TRACKING EVENT Routine 03/19/2022 11:04 AM [...] results section. from Last 3 Months Results CANCER GENETIC SEND OUT (05/04/2022) Specimen (Source) Anatomical Location Collection Method / Collectio n Time Received Time / Laterality Volume Blood BLOOD SPECIMEN / 05/04/2022 Unknown Narrative This result has an attachment that is no t available. Flaquito Berry MS, [facility] SEND OUTS LAB TRACKING EVENT (03/19/2022 11:04 AM CDT)Only the most recent of4 results within the time period is included. Specimen Anatomical Collection Method Collection Time Receive d Time (Source) Location / / Volume Laterality Other (Other) Client Collect / 03/19/2022 11:04 2021 Unknown AM CDT 12:18 PM CDT Aisha Cortes MD LAB BILL ONLY Performing Organization Address City/[facility]/ZIP [facility] Phon e Number [facility] [address] [place] [address] LABORATORY-CENTRAL 2000 LABORATORY MSO AP SEND-OUT (03/19/2022 10:31 AM CDT) Specimen Anatomical Collection Method Collection Time Receive d Time (Source) Location / / Volume Laterality Other (Left 03/19/2022 10:31 03/27/2022 3:01 Breast) AM CDT PM CDT Aisha Cortes MD LABORATORY Performing Organization Address [facility] Phon e Number [facility] [address] [place] [address] LABORATORY-CENTRAL 2000 LABORATORY PATH TISSUE EXAM (03/19/2022 10:31 AM CDT) Component Value Ref Test Analysis Performed Pathologis t Range Method Time At Signature Case Report Pathology Report ?Case: [id number] ? [facility] Authorizing Provider: ??Steve eugene, Aisha Maria MD ??Collected: ? 03/19/2022 1050 ? 2 12:34 HEALTH Ordering Location: ? [facility] CENTRAL LAB ?Received: ?03/20/2022 1032 ? PM CDT [facility] BORATORY- Pathologist: ? Tricia Powell, ? CENTRAL ? MD ? LABORATORY Specimens: ?? A) - Left Axil magui Ellis Lymph Node 1, node 1 ? B) - Left Axillary Ellis Lymph Node 2, node 2 ? C) - Left Breast Lump, left breast lumpectomy ? D) - Left Breast ? Amendment 04/07/2022 - The [facility] tissue was submitted 2 12:34 HEALTH to [employer] for PM CDT LABORATO RY- Oncotype DX [...] for metastatic malignancy in one lymph node (0 ) 12:33 PM 2. Biopsy clip and core biopsy associated changes identified Electronically signed by C) LEFT BREAST, MEDIAL MARGIN, EXCISION: Tricia Powell 1. Lobular carcinoma in situ (LCIS), classic type MD Krishna on 2. Negative for invasive malignancy 03/25/2022 at 3:34 PM D) LEFT BREAST, WIRE-LOCALIZED LUMPECTOMY: 1. Invasive lobular carcinoma, Riya grade II of III ? a. Size: [...] Breast Ancillary Testing: Performed on prior case ([id number]) ? a. Hormone Receptors: ? Estrogen receptor: Positive (97%, strong stai dileep) ? Progesterone receptor: Positive (97%, strong staining) ? b. HER2 by IHC: Negative (0 by manual morphometry) ? c. Ki-67: 24% Clinical Left breast invasive [facility] Information lobular carcinoma, 2 12:34 [facility] grade II PM CDT LABORATORY - with IS CENTRAL ([id number]). Benign LABORATOR Y left axillary lymph node biopsy ([id number]). Gross A) Received in formalin, lab eled [...] cassettes (1 node per cassette). 2 12:34 [facility] PM CDT LABORATORY- Time removed from [...] surgical team in the OR as follows: Anterior--Parker Posterior--Black Superior--Blue Inferior--Red Medial--Green Lateral--Yellow The specimen [...] fibrous tissue and 70% adipose tissue. ? Sisal Operator sections are submitted as follows: 1. ? [...] 1-2 mm (the closest margin is medial) PM CDT LABORATORY- ?? CENTRAL Elizabeth Garcia MD, 03/19/2022 11:03 AM LABORATORY Specimen received in [facility] 10:48 AM and examined by telepathology with pathologist automobile mechanic assistant Kiah. on site Intraoperative consultation, which may have included frozen section preparation, gross specimen examination, and/or cytology touch imprints/smears, was performed by a pathologist during the surgical procedure. ??This testing was performed at: [place] [address] Microscopic The final diagnosis is based on microscopic examination of appropriate sections of all specimens. SUGAR YOO Description 2 12:34 HEALTH A) Cytokeratin AE1/AE3 immun ohistochemical stain was performed on blocks A1 and A2 with appropriate controls and the results support the diagnosis. PM CDT LABORATORY- B) Cytokeratin AE1/AE3 immun ohistochemical [...] (sentinel and non-sentinel): ?3 ?? Number of Ellis Nodes Examined: ?3 PATHOLOGIC STAGE CLASSIFICATION (pTNM, [...] Category: ?pT1c Regional Lymph Nodes Modifier: ?(sn): Ellis node(s) evaluated. pN Category: ?pN1mi ADDITIONAL FINDINGS Additional Findings: ?F lorid LCIS with necrosis located 4 mm from the posterior margin Comment(s): ?Block(s) for potential future ancillary te sting: D13 Additional RAFFAELE Information Interpreted at [facility], Central Laboratory - [address], [place] [address] 2 12:34 HEALTH PM CDT LABORATORY- CENTRAL LABORATORY Specimen Anatomical Collection Method Collection Time Receive d Time (Source) Location / / Volume Laterality Other (Left 03/19/2022 10:50 03/20/2022 Axillary AM CDT 10:32 AM CDT Ellis Lymph Node 1) Specimen 03/19/2022 10:50 03/20/2022 (specimen) (Left AM CDT 10:34 AM CD T Axillary Ellis Lymph Node 2) Specimen 03/19/2022 10:50 03/20/2022 (specimen) (Left AM CDT 10:34 AM CD T Breast Lump) Specimen 03/19/2022 10:31 03/24/2022 3:23 (specimen) (Left AM CDT PM CDT Breast) Narrative This result has an attachment that is no t available. Aisha Cortes MD PATHOLOGY/CYTOLOGY Performing Organization Address City/State/ZIP Code Phon e Number [facility] [address] [place] [address] LABORATORY-CENTRAL 2000 LABORATORY PATH BREAST CORE BIOPSY (03/10/2022 11:40 AM CDT)Only the most recent of2 resultswithin the time period is included. Component Value Ref Test Analysis Performed At [facility] gist Range Method Time Signature Case Report Pathology Report ?Case: [id number] ? 03/11/2022 RAFFAELE Authorizing Provider: ??Unkn own, Doctor ?Collected: ? 03/10/2022 1140 ? 3:18 PM CDT HEAL TH Ordering Location: ? [facility] CENTRAL LAB ?Received: ?03/10/2022 2112 ? CHANO THOMSON-Óscar Pathologist: ? Noman Fernandez MD ? ENTRAL Specimen: ?Left Breast C ore Ultrasound Biopsy ? LABORATORY Final A) LEFT AXILLA, LYMPH NODE, ULTRASOUND-GUIDED CORE BIOPSY: 03/11/2022 [facility] Electronically Diagnosis 1. Fragments of benign lymph node 3:18 P M T HEALTH signed by Darrius, 2. Negative for [...] diagnosed left peter [facility] invasive lobular carcinoma, Riya grade II ([id number]) LABORATORY-C ENTRAL Had covid vaccine booster in same arm 2 weeks ago LABORATORY Gross A) Label: ??Patient's name and left axilla lymph node 03/11/2022 [facility] Description Description: 5 Fibrofatty core biopsies 3:18 PM CDT HEALTH Size: 0.6-0.9 cm in length by 0.2 [...] specimens. 03/11/2022 SUGAR YOO Description 3:18 PM T HEALTH A) The presence of black ink is confirmed on tissue sections. Additional levels were examined. LABORATORY-C ENTRAL LABORATORY Additional 03/11/2022 [facility] Information Interpreted at [facility], Central Laboratory - [address], [place] [address] 3:[address] [facility] LABORATORY-C ENTRAL LABORATORY Specimen (Source) Anatomical Collection Method Collection Time Re ceived Time Location / / Volume Laterality Other (Left Breast 03/10/2022 11:40 03/10 9:12 Core Ultrasound AM CDT PM CDT Biopsy) Doctor Unknown PATHOLOGY/CYTOLOGY Performing Organization Address City/State/ZIP Code Phon e Number [facility] [address] [place] [address] LABORATORY-CENTRAL 2000 LABORATORY from Last 3 Months Insurance Payer Benefit Plan / Subscriber ID Effective Dates Phone Addre ss Type Group [employer] [place] [employer] [id number] 2012-Present [address] [place] [address] Care Teams Sap Senior Developer Relationship Specialty Start Date End Date Dianne Amin MD PCP - General Internal Medicine 01/02/131999 [place] [address]
--- OUTSIDE RECORDS SUMMARY | 2022-05-18 08:00 | XMS_ITS | Encounter Summary ---
:1970 Author Organization [facility] Address [address] [place] [address] Care Team Providers Name Role Phone Unavailable Primary Care Provider Unavailable Reason for Visit Appointment Request (Routine) - Closed Specialty Diagnoses / Procedures Referred By Contact Refer red To Contact Radiation Oncology Diagnoses Malignant neoplasm of unspecified site of left female breast (HCC) Metastatic Left Breast Cancer Female Seda Bowman M.D. [facility] Procedures [facility] [address] [place] [address] Referral ID Status Reason Start Date Expiration Date Visits Requ ested Visits Authorized [id number] Closed 04/18/2022 04/18/2023 1 1 Encounter Details Date Type Department Care Team Description 04/20/2022 - Hospital Encounter Department of Lamar Moore Neoplasm 04/21/2022 Radiation Oncology Gabino [facility] in [place], [address] [place] [address] Female Left (HCC) [place], [place] (Primary Dx) [address] [facility] [address] [place], [place] [phone] [address] (Work) [phone] Social History Tobacco Use Types Packs/Day Years [...] week 04/14/2022 How often do you attend christian or restorationist services? Never 04/14/2022 Do you belong to any clubs or organizations such as christian N o 04/14/2022 groups, unions, fraternal or [...] place to sleep or slept in a mcfp (including now)? Education Answer Date Recorded What [...] CORE BIOPSY: 1. Invasive lobular carcinoma a. [place] grade: II of III; Riya score: 6 of 9 b. Angio-lymphatic invasion: [...] lobular carcinoma, Riya grade II of III a. Size: 13 [...] Breast Ancillary Testing: Performed on prior case ([id number]) a. Hormone Receptors: Estrogen receptor: Positive (97%, strong staining) Progesterone receptor: Positive (97%, strong staining) b. HER2 by IHC: Negative (0 by manual morphometry) c. Ki-67: 24% SPECIMEN Procedure: Excision (less than total mastectomy) Specimen Laterality: Left TUMOR Tumor Site: Clock position : 12 o'clock Tumor Site: Distance from nipple (Centimeters): 4 cm Histologic Type: Invasive lobular carcinoma Histologic Grade ([place] Histologic Score): Glandular (Acinar) / Tubular Differentiation: [...] Examined (sentinel and non-sentinel): 3 Number of [place] Nodes Examined: 3 PATHOLOGIC STAGE CLASSIFICATION (pTNM, AJCC 8th Edition) pT Category: pT1c Regional Lymph Nodes Modifier: (sn): [place] node(s) evaluated. pN Category: pN1mi ADDITIONAL FINDINGS [...] HISTORY, SOCIAL HISTORY AND FAMILY HISTORY PER [facility] EMR; These were reviewed. 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 OBJECTIVE BP [...] Stage IA, pT1c N1mi (sn) M0, G2, ER/MA+, HER2-, Oncotype DX 17) infiltrating lobular carcinoma [...] but will discuss this further with Dr. Paerson's office. I would see her back 3 weeks after the exchange for radiation planning. We would likely need to put her right arm down for our simulation to get a better angle with the implant. We also discussed proton therapy should we not be able to get a good angle or spare her heart. She knows that this is only done in [place]. 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 04/20/2022 Radiation Oncology [facility] [address] [place] [address] documented in this encounter Miscellaneous Notes Addendum Note - Zulay Wadsworth, C.N.A. - 04/20/2022 9:30 AM CDT Encounter addended by: Zulay Wadsworth, C.N.A. on: 04/21/2022 12:44 PM Actions taken: Letter saved documented in this encounter Plan of Treatment Upcoming Encounters Date Type Specialty Care Team Description 06/08/2022 Appointment Radiation Oncology Segun Moore M.D. [address] [place], [place] [phone] (May molina) 06/08/2022 Appointment Radiation Oncology Segun Moore M.D. [address] [place], [place] [phone] (May molina) documented as of this encounter Visit Diagnoses Diagnosis Malignant Neoplasm Of Breast Central Fem toni Left (HCC) - Primary documented in this encounter
--- OUTSIDE RECORDS SUMMARY | 2022-05-18 08:00 | XMS_ITS | Clinical Summary ---
:1970 Author Organization [facility] Address [address] [place] [address] Care Team Providers Name Role Phone Unavailable Primary Care Provider Unavailable Source Comments Patient records contain information from all sites at [facility]. For routine questions regarding patient records, call [phone] during business hours, M-F 8:00 AM - 5:00 PM Central Time. Record requests for emergency care only can be directed to [phone] at any time.[facility] Allergies No known active allergies Medications [...] Stage IA (pT1c, pN1mi(sn), cM0, G2, ER+, MD+, HER2-, Oncotype DX score: 17) - Unsigned Encounters Date Type Specialty Care Team Description 04/30/2022 Orders Only Hematology Seda Bowman, Oncology Gabino 04/30/2022 Orders Only Radiation Oncology OscarLamar garcia Malign ant Neoplasm [facility] Female Left (HC C) (Primary Dx) 04/20/2022 - Hospital Encounter Radiation Oncology OscarLamar garcia Malignant Neoplasm 04/21/2022 Gab[facility] Female Left (HC C) (Primary Dx) 04/17/2022 Clinical Admitting/Central Communication Scheduling from Last 3 Months Family History Medical History Relation Name Comments Skin cancer Father Ovarian cancer Maternal Grandmother Relation Name Status Comments Father Maternal Grandmother Other paternal great g randmother had breast cancer and lived to [facility] Social History Tobacco Use Types Packs/Day Years [...] week 04/14/2022 How often do you attend gnosticism or voodoo services? Never 04/14/2022 Do you belong to any clubs or organizations such as gnosticism N o 04/14/2022 groups, unions, fraternal or [...] minutes do you engage in exercise at is 50 min 04/14/2022 level? Stress Answer [...] place to sleep or slept in a assisted (including now)? Education Answer Date Recorded What [...] Mass Index - - Plan of Treatment Upcoming Encounters Date Type Specialty Care Team Description 06/08/2022 Appointment Radiation Oncology Segun Moore M.D. [address] [place] [phone] (Wo rk) 06/08/2022 Appointment Radiation Oncology Segun Moore M.D. [address] [place], [place] [phone] (Wo rk) Health Maintenance Due Date Last [...] this topic Medical Devices Implanted Type Area Rate Marker Device Shelf Model / Identifier Expiration Serial [...] System IMG BI PROCEDURES Performing Organization Address [facility] Code Phon e Number IIMS SOLANO NA US BREAST NEEDLE LOC LT-Outside US Breast (03/19/2022 8:30 AM CDT)Only the most recent of3 resultswithin the time period is included. Specimen (Source) Anatomical Location Collection Method / Collectio n Time Received Time / Laterality Volume Narrative [facility] - 04/09/2022 3:04 PM CDT This order [...] System IMG BI PROCEDURES Performing Organization Address [facility] Code Phon e Number II II NA US biopsy lymph axillary-Outside US (03/10/2022 11:30 AM CDT) Specimen (Source) Anatomical Location Collection Method / Collectio n Time Received Time / Laterality Volume Narrative [facility] - 04/09/2022 3:04 PM CDT This order [...] System IMG US PROCEDURES Performing Organization Address City/[facility]/ZIP Code Phon e Number IIMS IIMS NA MR breast BI wo/w con-Outside MR Breast (03/05/2022 1:35 PM CDT) Specimen (Source) Anatomical Location Collection Method / Collectio n Time Received Time / Laterality Volume Narrative [facility] - 04/09/2022 3:06 PM CDT This order [...] System IMG MRI PROCEDURES Performing Organization Address City/State/ZIP Code Phon e Number IIMS IIMS NA from Last 3 Months Insurance Payer Benefit Plan / Subscriber ID Effective Phone Address T ype Group Dates [facility] [id number] 2020-Pres [phone] [address] [facility] ent [address] [place] [address]
--- NOTE | 2022-05-18 08:15 | CRLHL7_ITS ---
For Patients: As a result of the Century Cures Act, medical imaging exams and procedure reports are released immediately into your electronic medical record. You may view this report before your referring provider. If you have questions, please contact your health care provider. Indication: Indeterminate liver lesion identified in patient with history of breast cancer Technique: MRI of the abdomen with and without contrast, DOTAREM 20 ml IV Comparison: CT dated April 29, 2022 and ultrasound dated April 29, 2022 Findings: Bilateral breast implants. Partially visualized left upper outer quadrant lymph node versus mass. Normal liver size and contour. No fat or iron deposition within the liver. There are two right hepatic lobe lesions which are markedly T2 hyperintense and demonstrate discontinuous peripheral nodular enhancement. There are no suspicious hepatic lesions. Hepatic and portal veins appear patent. Normal gallbladder. No biliary dilatation. No significant abnormality of the adrenal glands, kidneys, spleen, pancreas, stomach, duodenum, vessels, retroperitoneal lymph nodes, bowel or bones. Specifically, there are no renal lesions. Renal stones are not well evaluated on this examination. Impression: 1. Hepatic lesions represent benign hemangiomas. No suspicious hepatic lesions. 2. No suspicious renal lesions. Echogenic renal lesions are favored represent renal stones as seen on prior CT. No evidence of AML. Dictated by Norman Stiles MD @ 05/19/2022 12:10:05 PM (Electronically Signed)
== END 2022-05-18 07:59 | disposition home or self-care (01) ==
LOC: MRI 07:59
PROVIDERS: PCP Internal Medicine; Visit Provider Internal Medicine Hematology & Oncology
DX: K76.9 Liver disease, unspecified (principal)
CPT/HCPCS: 74183; A9575

== ENCOUNTER 2022-08-26 07:01 | Outpatient (CLI) | payer OTHER, SELFPAY ==
--- NOTE | 2022-08-26 07:15 | CRLHL7_ITS ---
For Patients: As a result of the Century Cures Act, medical imaging exams and procedure reports are released immediately into your electronic medical record. You may view this report before your referring provider. If you have questions, please contact your health care provider. INDICATION: low/left back pain. hx of breast CA and family hx of ovarian complications COMPARISON: none TECHNIQUE: 2D pitts scale and color Doppler images were acquired of the pelvis using a transabdominal and transvaginal approach. FINDINGS: Multiple uterine fibroids are present. Right anterior lower uterine segment fibroid is present measuring 2.5 x 2.5 x 1.9 cm. Left mid posterior fibroid is noted measuring 2.5 x 1.7 x 2.4 cm. Left fundal fibroid measuring 2.7 x 1.8 x 2.5 cm. Uterus measures 8.0 cm in length by 3.7 cm in AP diameter by 5.6 cm in transverse dimension. The endometrial lining appears normal and measures 5 mm in composite thickness. The right ovary measures 2.2 x 0.9 x 2.0 cm in size and the left ovary measures 3.1 x 1.2 x 2.8 cm. The ovaries demonstrate normal arterial and venous blood flow on color Doppler analysis. Hypoechoic left ovarian cysts measuring 1.2 x 0.7 x 0.9 cm and 1.2 x 0.8 x 1.1 cm. There are no suspicious fluid collections within the cul-de-sac. IMPRESSION: Multiple uterine fibroids measuring 2.5 cm, 2.5 cm and 2.7 cm. Hypoechoic left ovarian cysts measuring 1.2 cm and 1.2 cm. Dictated by Noman Srivastava MD @ 08/26/2022 1:02:14 PM (Electronically Signed)
== END 2022-08-26 07:02 | disposition home or self-care (01) ==
LOC: US 07:02
PROVIDERS: PCP Internal Medicine; Visit Provider Internal Medicine
DX: M54.59 Other low back pain (principal); D25.9 Leiomyoma of uterus, unspecified; N83.202 Unspecified ovarian cyst, left side
CPT/HCPCS: 76830; 76856; 93976

== ENCOUNTER 2022-09-24 09:00 | Outpatient (RCR) | payer OTHER, SELFPAY | END 2022-09-29 23:59 | disposition home or self-care (01) | LOC: CCIC 09:00 | PROVIDERS: PCP Internal Medicine; Visit Provider Physician Assistant | DX: C50.912 Malignant neoplasm of unspecified site of left female breast (principal); Z17.0 Estrogen receptor positive status [ER+]; Z79.810 Long term (current) use of selective estrogen receptor modulators (SERMs) | CPT/HCPCS: 99202; 99204; 99205; 99212; 99215 ==

== ENCOUNTER 2022-09-30 14:15 | Outpatient (RCR) | payer OTHER, SELFPAY ==
--- NOTE | 2022-10-02 10:06 | ONC.NURNOTE ---
Pt called with questions regarding necessity of continuing Endocrine Therapy if she has bilateral oopherectomy with her upcoming salpingectomy/surgery. Reviewed with Isabela Palmer PA-C. Reviewed with pt mechanism of Tamoxifen, which pt is currently on, and AI therapy post-menopause. Pt is still deciding, but leaning towards salpingectomy.
== END 2023-02-01 14:50 | disposition home or self-care (01) ==
PROVIDERS: PCP Internal Medicine; Visit Provider Internal Medicine
DX: M54.59 Other low back pain (principal); Z51.89 Encounter for other specified aftercare
CPT/HCPCS: 97110; 97112; 97161

== ENCOUNTER 2022-10-22 11:15 | Emergency (ER) | payer OTHER, SELFPAY ==
[2022-10-22 11:49] VITALS: BP 121/69; PULSE 58; RESP 16; TEMP 36.3; O2SAT 100; BMI 26.6
--- NOTE | 2022-10-22 12:06 | ED.CHESTPAIN ---
HPI - Chest Pain General Chief Complaint: Chest Pain Stated Complaint: Chest pain Time Seen by Provider: 10/22/22 11:16 History of Present Illness HPI narrative: This 52-year-old female comes in reporting intermittent chest discomfort along the left sternal border. This began last night and does come and go. It is reproducible with certain movements. She does not report any nausea, vomiting, lightheadedness, shortness of breath, diaphoresis, or exercise intolerance. She does not have any prior heart history and has no cardiac risk factors. She does have breast cancer in is scheduled for surgery next week. Related Data Home Medications Medication Instructions Recorded Confirmed fluticasone propionate 93 1 spray intranasal BID PRN 04/02/22 10/22/22 mcg/actuation breath activated aerosol ibuprofen 200 mg tablet 200 mg PO Q6H PRN 04/02/22 10/22/22 Previous Rx's Medication Instructions Recorded naratriptan 2.5 mg tablet 2.5 mg PO ONCE PRN migraine 03/05/22 headache #9 tabs nortriptyline 10 mg capsule 20 mg PO .HS #180 caps 03/05/22 tamoxifen 20 mg tablet 20 mg PO QDAY #90 tabs 04/08/22 Allergies Allergy/AdvReac Type Severity Reaction Status Date / Time No Known Allergies Allergy Unknown Verified 10/22/22 11:48 Review of Systems Status of ROS Reports: 10 or more systems reviewed and unremarkable except as noted in History and below Narrative Constitutional: No fevers, no weight gain or loss. Eyes: No discharge. No vision changes. HENT: No congestion, no sore throat, no ear pain. Cardiovascular: No palpitations. Respiratory: No shortness of breath, no wheezes, no cough. Gastrointestinal: No abdominal pain, no vomiting, no diarrhea. Genitourinary: No dysuria, no hematuria. Musculoskeletal: Normal range of motion. Skin: No rashes, no pruritis. Neurological: No dizziness, weakness, sensory change, speech change. Endo/Heme/Allergies: No bruising or bleeding. No polydipsia. Pysch: no suicidality, no anxiety, no insomnia. All other systems reviewed and are negative. [facility] Medical History (Updated 10/22/22 @ 12:11 by Jason Jeong MD) History of coma ?Z87.898 - Personal history of other specified conditions (ICD-10) Surgical History (Updated 08/25/22 @ 08:46 by Dianne Amin MD) History of abnormal cervical Papanicolaou smear (06/02/12) ?Z87.42 - Personal history of other diseases of the female genital tract (ICD-10) History of benign breast biopsy (2012) ?Z98.890 - Other specified postprocedural states (ICD-10) History of bilateral breast implants (1997) ?Z98.82 - Breast implant status (ICD-10) History of breast reconstruction ?Z98.890 - Other specified postprocedural states (ICD-10) History of lumpectomy of left breast ?Z98.890 - Other specified postprocedural states (ICD-10) Hx of toe surgery (1994) ?Z98.890 - Other specified postprocedural states (ICD-10) Family History Family/Other Breast cancer Maternal Grandmother Ovarian cancer Father Skin cancer High blood pressure Diabetes Alcohol dependence 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 Nonsmoker. Alcohol use: Approximately 6 drinks per week. No recreational drug use. Feels safe at home and no concerns with abuse. Smoking Status: Never smoker Do you use any of these nicotine containing products: None Second hand tobacco smoke exposure: No How often do you have a drink containing alcohol: 2-3 times a week How many standard drinks containing alcohol do you have on a typical day: 1 or 2 How often do you have six or more drinks on one occasion: Never AUDIT-C Alcohol total score: 3 Non-prescribed substance use: denies use Little interest or pleasure in doing things: not at all Feeling down, depressed, or hopeless: not at all service: No Exam Narrative Exam Narrative: Constitutional: Well-developed, well-nourished, no acute distress. HEENT: Normocephalic, atraumatic. Neck: Normal range of motion. Nontender. Supple. Heart: Regular. No murmurs. Normal rate. Intact distal pulses. Lungs: Clear to auscultation. No wheezes, rhonchi, or rales. Chest: Chest discomfort along the left sternal border is distinctly reproduced with certain movements. Abdomen: Normal bowel sounds. Nontender. No rebound tenderness. Genitalia: Deferred. Back: No midline tenderness. Normal range of motion. Extremities: Normal range of motion. No injury. Skin: Intact. No rash. Warm. No erythema or pallor. Neurologic: No altered sensation. No weakness. Alert and oriented. Psychiatric: No suicidality. No anxiety or depression. No insomnia. Nursing notes and vitals signs are reviewed. Const Vital Signs, click to edit/add: Vital Signs - 24 hr 10/22/22 11:49 Temperature 97.4 F L Pulse Rate [Pulse Oximeter] 58 L Respiratory Rate 16 Blood Pressure [Right Upper Arm] 121/69 Pulse Oximetry 100 Oxygen Delivery Method Room Air Course Vital Signs Vital signs: Initial Vital Signs Temperature 97.4 F L 10/22/22 11:49 Temperature Source Temporal Artery Scan 10/22/22 11:49 Pulse Rate 58 L 10/22/22 11:49 Pulse Rhythm Regular 10/22/22 11:49 Pulse Strength 3+ Normal 10/22/22 11:49 Respiratory Rate 16 10/22/22 11:49 Blood Pressure 121/69 10/22/22 11:49 Blood Pressure Mean 86 10/22/22 11:49 Blood Pressure Position Supine 10/22/22 11:49 Pulse Oximetry 100 10/22/22 11:49 Oxygen Delivery Method Room Air 10/22/22 11:49 Vital Signs Temperature 97.4 F L 10/22/22 11:49 Pulse Rate 58 L 10/22/22 11:49 Respiratory Rate 16 10/22/22 11:49 Blood Pressure 121/69 10/22/22 11:49 Pulse Oximetry 100 10/22/22 11:49 Oxygen Delivery Method Room Air 10/22/22 11:49 Temperature 97.4 F L 10/22/22 11:49 Pulse Rate 58 L 10/22/22 11:49 Respiratory Rate 16 10/22/22 11:49 Blood Pressure 121/69 10/22/22 11:49 Pulse Oximetry 100 10/22/22 11:49 Oxygen Delivery Method Room Air 10/22/22 11:49 MDM - Chest Pain MDM Narrative Medical decision making narrative: This patient comes in with reproducible chest discomfort suggestive of a chest wall pain. Her EKG is completely normal and she does not have any other associated symptoms or risk factors. She has good exercise tolerance and no prior heart history. I did discuss further lab and imaging options with the patient which she declined in a process of shared decision making. At the time of discharge the patient appears safe for outpatient management. The treatment plan is reviewed along with written and verbal return precautions. Reasons to return and the importance of close followup were also reviewed. ECG Data Attestation: I personally reviewed and interpreted this ECG as follows: Interpretation: Normal sinus rhythm. Rate is 52 beats per minute. There are no ST or T-wave abnormalities. Discharge Plan Discharge Clinical Impression: Acute chest wall pain Patient Disposition: Home, Self-Care Condition: Stable Additional Instructions: Continue current plans. Follow up with MD as scheduled or return if worsening. Prescriptions: No Action nortriptyline 10 mg capsule 20 mg PO .HS Qty: 180 3RF naratriptan 2.5 mg tablet 2.5 mg PO ONCE PRN (Reason: migraine headache) Qty: 9 11RF Rx Instructions: max 5 mg in a 24 hour period fluticasone propionate 93 mcg/actuation aerosol breath activated 1 spray intranasal BID PRN Rx Instructions: into each nostril ibuprofen 200 mg tablet 200 mg PO Q6H PRN Hold Instructions: Doctor's Order tamoxifen 20 mg tablet 20 mg PO QDAY Qty: 90 3RF Rx Instructions: Start 2 weeks after radiation is completed Follow Up/Referrals: Dianne Amin MD [Primary Care Provider] - Stand Alone Forms: [facility] Info Instructions
== END 2022-10-22 12:14 | disposition home or self-care (01) ==
PROVIDERS: Emergency Provider Emergency Medicine Emergency Medical Services; PCP Internal Medicine
DX: R07.89 Other chest pain (principal)
CPT/HCPCS: 93005; 99283; 99284

== ENCOUNTER 2022-10-27 06:00 | Day surgery (SDC) | payer OTHER, SELFPAY ==
[2022-10-27] VITALS (12 sets, daily range): BP systolic 117–171; BP diastolic 60–97; PULSE 45–71; RESP 16; TEMP 36.3–36.7; O2SAT 95–100; BMI 26.8
[2022-10-27 06:20] LABS: Ur HCG Qualitative* Negative (Negative)
[2022-10-27] MEDS: LACTATED RINGERS 1000 ML 1,000 ML 100 ML IV (06:30)
[2022-10-27] MEDS: SODIUM CHLORIDE 0.9 % (FLUSH) 10 ML SYRINGE IVF (06:30)
--- NOTE | 2022-10-27 06:38 | SUR.PREOP ---
Patient provided home covid negative results to RN.
--- NOTE | 2022-10-27 07:49 | W.ANESCHARGE ---
Anesthesia Charges Start Date/Time Anesthesia Start Date: 10/27/22 Anesthesia Start Time: 07:29 Stop Date/Time Anesthesia Stop Date: 10/27/22 Anesthesia Stop Time: 08:42
--- NOTE | 2022-10-27 08:28 | PM.PROC ---
Procedure Note Time Seen by Provider: 08:28 Date Seen: 10/27/22 Date of procedure: 10/27/22 Will [facility] bill your pro fee for this procedure?: Yes Procedure: assistant attorney general op note: Preoperative diagnosis: [id number] with personal history of breast cancer, undesired fertility. Postoperative diagnosis: Same Procedure: Laparoscopic bilateral salpingectomy Operative note: I was asked to assist Dr. Case with the patient's surgery. I aided in dissection, visualization, and obtaining hemostasis. Please see Dr. Case note for complete details.
--- NOTE | 2022-10-27 08:34 | W.PM.GYNPROC ---
Procedure Note Date Seen: 10/27/22 Procedure Details: PREOPERATIVE DIAGNOSES: 1. Undesired fertility. 2. History of breast cancer, on tamoxifen. 3. Negative genetic screening, average lifetime ovarian cancer risk. POSTOPERATIVE DIAGNOSES: 1. Undesired fertility. 2. History of breast cancer, on tamoxifen. 3. Negative genetic screening, average lifetime ovarian cancer risk. PROCEDURE: 1. Laparoscopic bilateral salpingectomies. SURGEON: Manpreet OLERICULTURE PROFESSOR: Harman Carballo. ANESTHESIA: General endotracheal. COMPLICATIONS: None. ESTIMATED BLOOD LOSS: 10 mL. FINDINGS: Normal-appearing fallopian tubes and ovaries bilaterally. Slightly enlarged retroverted uterus, containing small submucosal fibroids. Normal-appearing appendix, gallbladder, and liver. DESCRIPTION OF PROCEDURE: After obtaining informed consent, the patient was taken to the operating room where general anesthesia was obtained without difficulty. She was prepared and draped in the normal sterile fashion in the low dorsal lithotomy position. A Alfaro catheter was inserted into the bladder and left to gravity drainage. A medium Graves open-sided speculum was introduced into the vagina. The cervix was visualized and grasped along its anterior lip with a single-tooth tenaculum. A [employer] uterine manipulator was placed without difficulty. The tenaculum and speculum were removed. I then changed gloves and my attention was turned to the abdomen. The inferior aspect of the umbilical fold was injected with 0.25% Marcaine plain. A 5 mm vertical incision was then made within the umbilical fold using a scalpel. The subcutaneous tissues were bluntly dissected with a Raegan clamp to the fascia. A direct entry technique was used to place a 5 mm laparoscopic port with CO2 gas set to a 5 mmHg. The trocar was removed leaving the sleeve in place. The CO2 gas flow was turned to high flow to achieve pneumoperitoneum. The 5 mm laparoscope was used then to carefully inspect the abdomen and pelvis with findings noted above. Pictures were taken for documentation purposes. The patient was placed in Trendelenburg positioning. Two additional 5 mm port were placed in the right and left lower quadrants under direct visualization after first anesthetizing the skin and fascia with 0.25% Marcaine plain. The uterus was elevated using the uterine manipulator. The bowels were gently pushed from the pelvis cephalad. The right fallopian tube was elevated with a graspers. The Olympus Powerseal was used to carefully dissect the fallopian tube from its ovarian, broad ligament, and cornual attachments. The tube was removed through the left lower quadrant port. The left fallopian tube was elevated, dissected from its attachments, and removed in a similar fashion. Excellent hemostasis was visualized peer All instruments were then removed under direct visualization. Pneumoperitoneum was allowed to escape. The skin at all 3 port sites was closed in a subcuticular fashion with 4-0 Vicryl. LiquiBand was then placed over the incisions. The uterine manipulator and Alfaro catheter were removed. The patient tolerated the procedure well. Sponge, lap, and needle counts were correct x2. The patient was taken to the recovery room awake and in stable condition.
--- NOTE | 2022-10-27 08:49 | W.ANESCHARGE ---
Anesthesia Charges Start Date/Time Anesthesia Start Date: 10/27/22 Anesthesia Start Time: 07:29 Stop Date/Time Anesthesia Stop Date: 10/27/22 Anesthesia Stop Time: 08:42
== END 2022-10-27 10:45 | disposition home or self-care (01) ==
PROVIDERS: PCP Internal Medicine; Visit Provider Obstetrics & Gynecology
PROC: (CPT 58661; principal; 2022-10-27 07:15)
DX: Z30.2 Encounter for sterilization (principal); Z85.3 Personal history of malignant neoplasm of breast
CPT/HCPCS: 58661; 00840; 00851; 81025; J0131; J0330; J1100; J1885; J2250; J2405; J2704; J3010; J3475; J3490; J7120

== ENCOUNTER 2022-11-11 08:54 | Outpatient (CLI) | payer OTHER, SELFPAY | END 2022-11-11 08:55 | disposition home or self-care (01) | LOC: NFLDREF 08:55 | PROVIDERS: PCP Internal Medicine; Visit Provider Obstetrics & Gynecology | DX: R30.9 Painful micturition, unspecified (principal) | CPT/HCPCS: 87086 ==

== ENCOUNTER 2023-01-26 09:00 | Outpatient (CLI) | payer OTHER, SELFPAY ==
--- NOTE | 2023-01-26 09:15 | CRLHL7_ITS ---
For Patients: As a result of the Cures Act, medical imaging exams and procedure reports are released immediately into your electronic medical record. You may view this report before your referring provider. If you have questions, please contact your health care provider. LEFT BREAST ULTRASOUND CLINICAL HISTORY: LEFT breast discomfort/fullness. COMPARISON: 12/03/2022, 04/29/2022, 03/05/2022. TECHNIQUE: Real-time ultrasound imaging of LEFT breast with imaging documentation. Scanning was performed by both the technologist and the radiologist. FINDINGS: Postlumpectomy changes are present. Intact LEFT breast implant. No fluid surrounding the implant. No drainable fluid collection. Subcutaneous edema with skin thickening. The LEFT breast is asymmetrically enlarged compared to the RIGHT breast and is gavin on clinical exam. No axillary adenopathy or drainable fluid collection. No abscess. IMPRESSION: Diffuse skin thickening and subcutaneous edema involving the LEFT breast resulting in asymmetric enlargement of the LEFT breast compared to the RIGHT breast. No drainable fluid collection. The LEFT breast implant is intact. No suspicious masses or axillary adenopathy. No LEFT arm swelling. Findings are compatible with post radiation change. RECOMMENDATIONS: Radiation oncology consultation recommended. Results and recommendations were discussed with the patient at the time of the exam. BI-RADS Category 2: Benign A lay language report of this examination will be provided to the patient. Dictated by Noman Srivastava MD @ 01/26/2023 10:40:50 AM /Dictated by: Noman Srivastava MD @ 01/26/2023 10:40:00 AM (Electronically Signed)
== END 2023-01-26 09:01 | disposition home or self-care (01) ==
LOC: US 09:01
PROVIDERS: PCP Internal Medicine; Visit Provider Internal Medicine
DX: N64.4 Mastodynia (principal)
CPT/HCPCS: 76642

== ENCOUNTER 2023-02-05 07:27 | Outpatient (CLI) | payer OTHER, SELFPAY ==
--- NOTE | 2023-02-05 08:00 | CRLHL7_ITS ---
For Patients: As a result of the Century Cures Act, medical imaging exams and procedure reports are released immediately into your electronic medical record. You may view this report before your referring provider. If you have questions, please contact your health care provider. INDICATION: Breast fullness, unspecified lump. COMPARISON: Chest CT dated 04/29/2022. TECHNIQUE: CT of the chest with IV contrast. 75 cc of Isovue-370 administered intravenously. FINDINGS: Bilateral mammoplasty change. No extracapsular rupture. No clear intracapsular rupture. No obvious breast mass is seen by CT. No central pulmonary artery embolism. No thoracic aortic aneurysm. Stable liver lesion posterior right hepatic lobe measuring 2.2 x 2.4 cm, segment VII, with an average Hounsfield attenuation of 44. Adrenal glands appear unremarkable. Tiny fissural nodule along the minor fissure measuring 5 mm. Minimal reticulation posterior to the left breast along the pleural lining could be related to minor radiation change. No new focal or diffuse pulmonary opacities. No axillary lymphadenopathy. No mediastinal or hilar lymphadenopathy. The thyroid and neck base appears unremarkable. The bones are stable. IMPRESSION: 1. No obvious CT explanation for breast lump. No intra- or extracapsular rupture seen. The shape of the left implant is somewhat rounder rather than the more flat right breast implant which was not definitely seen on prior but there is no definite evidence of rupture is seen. 2. Stable segment VII liver lesion measuring approximately 24 x 22 mm and not definitely a cyst but I see an MRI report but no imaging available that describes hemangiomas in the liver and they were reportedly in the right lobe. Please note that all CT scans at this facility use dose modulation, iterative reconstruction, and/or weight-based dosing when appropriate to reduce radiation dose to as low as reasonably achievable. Dictated by Will Yost MD @ 02/05/2023 2:38:43 PM (Electronically Signed)
== END 2023-02-05 07:28 | disposition home or self-care (01) ==
LOC: CT 07:27
PROVIDERS: PCP Internal Medicine; Visit Provider Internal Medicine
DX: N63.0 Unspecified lump in unspecified breast (principal); K76.9 Liver disease, unspecified
CPT/HCPCS: 71260; Q9967

== ENCOUNTER 2023-03-29 08:16 | Outpatient (RCR) | payer OTHER, SELFPAY ==
--- NOTE | 2023-06-16 08:40 | ONC.NURNOTE ---
Addendum entered by Bessy Yin RN 06/16/23 14:48: Refilled by Dr. tracey and sent to pharmacy. [facility] [place] for patient. Original Note: Patient called office stating that she only has one tamoxifen tablet left today. She is wondering if this can be refilled. She was seen in March by Dr. Tracey. Nursing to ask for year supply to be sent to [facility] per patient request.
== END 2023-06-29 23:59 | disposition home or self-care (01) ==
LOC: CCIC 08:16
PROVIDERS: PCP Internal Medicine; Visit Provider Internal Medicine Hematology & Oncology
DX: C50.912 Malignant neoplasm of unspecified site of left female breast (principal); Z17.0 Estrogen receptor positive status [ER+]; Z79.810 Long term (current) use of selective estrogen receptor modulators (SERMs); N61.0 Mastitis without abscess
CPT/HCPCS: 99212; 99214; 99215

== ENCOUNTER 2023-04-20 16:38 | Outpatient (CLI) | payer OTHER, SELFPAY ==
--- NOTE | 2023-04-20 16:45 | CRLHL7_ITS ---
For Patients: As a result of the Century Cures Act, medical imaging exams and procedure reports are released immediately into your electronic medical record. You may view this report before your referring provider. If you have questions, please contact your health care provider. BILATERAL SCREENING MAMMOGRAM WITH COMPUTER-AIDED DETECTION AND TOMOSYNTHESIS TECHNIQUE: CC, MLO and Implant displaced views were obtained. These mammographic images have been obtained using full-field digital technique. These mammographic images were interpreted with the benefit of computer-aided detection. Breast Tomosynthesis was used in this interpretation. COMPARISON FILM: 12/03/22, 02/18/22, 01/10/21. FINDINGS: There are scattered areas of fibroglandular density IMPRESSION: There is no radiographic evidence for malignancy. ASSESSMENT: BI-RADS Category 2: Benign RECOMMENDATION: Routine screening mammogram in 1 year. A lay language report of this examination will be provided to the patient. Noman Srivastava M.D. Diagnostic Radiologist [email or web address] JOHNNY/Dictated by: Noman Srivastava MD @ 04/21/2023 9:34:00 AM (Electronically Signed)
== END 2023-04-20 16:39 | disposition home or self-care (01) ==
PROVIDERS: PCP Internal Medicine; Visit Provider Internal Medicine Hematology & Oncology
DX: Z12.31 Encounter for screening mammogram for malignant neoplasm of breast (principal)
CPT/HCPCS: 77063; 77067

== ENCOUNTER 2023-07-14 07:30 | Outpatient (CLI) | payer OTHER, SELFPAY ==
--- NOTE | 2023-07-14 08:00 | CRLHL7_ITS ---
For Patients: As a result of the Century Cures Act, medical imaging exams and procedure reports are released immediately into your electronic medical record. You may view this report before your referring provider. If you have questions, please contact your health care provider. Indication: Malignant neoplasm of unspecified site of unspecified breast Technique: CT Chest w/ 75cc Isovue-370 Please note that all CT scans at this facility use dose modulation, iterative reconstruction, and/or weight-based dosing when appropriate to reduce radiation dose to as low as reasonably achievable. Comparison: 02/05/2023 Findings: Ground-glass nodule with right anterior lung measuring 5 millimeters, 44, unchanged. Subpleural nodule anterior right lung measuring 3 millimeters, 42. Subpleural densities anterior left lung are unchanged. The implants are similar bilaterally. No pleural effusion or pulmonary edema. No pneumothorax or infiltrate. Normal thyroid. No mediastinal, hilar or axillary adenopathy. Stable ill-defined low-density benign lesion within the right hepatic lobe. No fracture. No suspicious osseous lesion. Impression: Stable small right anterior pulmonary lung nodules and stable mild postradiation change anterior left lung. Stable morphology of the bilateral implants. Stable liver. Please note that all CT scans at this facility use dose modulation, iterative reconstruction, and/or weight-based dosing when appropriate to reduce radiation dose to as low as reasonably achievable. Dictated by Noman Srivastava MD @ 07/15/2023 4:15:37 PM (Electronically Signed)
== END 2023-07-14 07:31 | disposition home or self-care (01) ==
LOC: CT 07:30
PROVIDERS: PCP Internal Medicine; Visit Provider Internal Medicine Hematology & Oncology
DX: C50.919 Malignant neoplasm of unspecified site of unspecified female breast (principal); R91.8 Other nonspecific abnormal finding of lung field
CPT/HCPCS: 71260; Q9967

== ENCOUNTER 2023-09-22 14:30 | Outpatient (RCR) | payer OTHER, SELFPAY | END 2023-12-27 23:59 | disposition home or self-care (01) | LOC: CCIC 14:30 | PROVIDERS: PCP Internal Medicine; Visit Provider Internal Medicine Hematology & Oncology | DX: C50.912 Malignant neoplasm of unspecified site of left female breast (principal); Z17.0 Estrogen receptor positive status [ER+]; Z79.810 Long term (current) use of selective estrogen receptor modulators (SERMs); R23.2 Flushing | CPT/HCPCS: 99212; 99214; 99215; G0463 ==

== ENCOUNTER 2023-10-05 08:54 | Outpatient (CLI) | payer OTHER, SELFPAY ==
--- NOTE | 2023-10-05 09:15 | US_ITS ---
Patient: TARA MCKEON REP Facility:?[facility] Patient ID:?[id number] Site Patient ID:?[id number]. Site :?[id number] Study:?US-Extremity Right RT AXILLA-10/05/2023 9:38:24 AM Ordering Physician:HUYEN CROOKS Final Report: Indication: History of left breast cancer. Right axillary tenderness. Technique: Grayscale and color Doppler ultrasound of the right axilla performed. Comparison: CT chest 07/14/2023. Mammogram 12/03/2022 Findings: Targeted right axillary ultrasound demonstrates a normal elongated right axillary lymph node with normal central fatty hilum. This lymph node measures 8 x 11 x 38 millimeters. Normal internal vascularity. No thickening of the cortex. No fluid collection or suspicious mass. Impression: Normal right axillary lymph node. No suspicious findings. Dictated by Noman Srivastava MD @ 10/05/2023 10:54:13 AM Signed by:?Noman Srivastava MD @10/05/2023 10:54:13 AM (Electronic Signature)
== END 2023-10-05 08:55 | disposition home or self-care (01) ==
LOC: US 08:55
PROVIDERS: PCP Internal Medicine; Visit Provider Internal Medicine Hematology & Oncology
DX: N64.4 Mastodynia (principal)
CPT/HCPCS: 76882

== ENCOUNTER 2023-12-29 08:53 | Outpatient (CLI) | payer OTHER, SELFPAY ==
--- OUTSIDE RECORDS SUMMARY | 2023-12-29 08:56 | XMS_ITS | Clinical Summary ---
Author Organization [facility] Address [address] [place] [id number] Care Team Providers Care Preschool Paraprofessional Name Role Phone [facility]- Primary Care Provider Allergies No known active allergies Medications Medication Sig Dispensed Refills Start Date End Date Status nortriptyline (PAMELOR) 10 MG capsule Take 20 mg by mouth At Bedtime Active naratriptan (AMERGE) 2.5 MG tablet Take 2.5 mg by mouth at onset of headache for migraine Take 1/2 tablet Active oxyCODONE (ROXICODONE) 5 MG tabletIndications: Status post surgery Take 1-2 tablets (5-10 mg) by mouth every 4 hours as needed for moderate to severe pain 12 tablet 05/21/2022 Active senna-docusate (SENOKOT-S/PERICOL MATEUSZ) 8.6-50 MG tabletIndications: Status post surgery Take 1-2 tablets by mouth 2 times daily as needed for constipation (while taking oxycodone) 20 tablet 05/21/2022 Active Social History Tobacco Use Types Packs/Day Years Used Date Smoking Tobacco: Never Smokeless Tobacco: Never Tobacco Cessation:Counseling Given: Not Answered Alcohol Use Standard Drinks/Week Comments Yes 0 (1 standard drink = 0.6 oz pur e alcohol) 2-3 drinks per week Adolescent Education Answer Date Record ed Getting School Help Needed Not on file 04/10 Sex and Gender Information Value Date Recorded Sex Assigned at Not on file Gender Identity Not on file Sexual Orientation Not on file Last Filed Vital Signs Vital Sign Reading Time Taken Comments Blood Pressure 98/68 05/21/2022 2:26 PM CDT Pulse 71 05/21/2022 2:26 PM CDT Temperature 36.8 ??C (98.2 ??F) 05/21/2022 2:26 PM CD T Respiratory Rate 12 05/21/2022 2:26 PM CDT Oxygen Saturation 99% 05/21/2022 2:26 PM CDT Inhaled Oxygen Concentration - - Weight 72.8 kg (160 lb 8 oz) 05/21/2022 6:12 AM CDT Height 167.6 cm (5' 6) 05/21/2022 6:12 AM CDT Body Mass Index 25.91 05/21/2022 6:12 AM CDT Plan of Treatment Health Maintenance Due Date Last Done Comments ADVANCE CARE PLANNING 1969 ANNUAL REVIEW OF HM ORDERS 1969 CT COLONOGRAPHY 1969 FIT 1969 FLEX SIG 1969 MAMMO SCREENING 1969 YEARLY PREVENTIVE VISIT 1969 sDNA (Cologuard) 1969 COLONOSCOPY 1979 COLORECTAL CANCER SCREENING 1979 HIV SCREENING 1984 HEPATITIS C SCREENING 1987 HEPATITIS B IMMUNIZATION (1 of 3 - 19+ 3-dose series) 1988 PAP 1990 LIPID 2009 COVID-19 Vaccine ( season) 2023 03/02/2022, 05/25/2021, 10/18/2020, Additional history exists PHQ-2 (once per calendar year) 2023 INFLUENZA VACCINE (Season Ended) 2024 04/09/2021, 04/17/2020, 04/26/2019, Additional history exists GLUCOSE 04/29/2025 04/29/2022 DTAP/TDAP/TD IMMUNIZATION (3 - Td or Tdap) 08/29/2031 08/29/2021, 12/19/2007 ZOSTER IMMUNIZATION Completed 11/06/2021, HPV IMMUNIZATION Aged Out No longer e ligible based on patient's age to complete this topic IPV IMMUNIZATION Aged Out No longer e ligible based on patient's age to complete this topic MENINGITIS IMMUNIZATION Aged Out No l onger eligible based on patient's age to complete this topic Pneumococcal Vaccine: Pediatrics (0 to 5 Years) and At-Risk Patients (6 to 64 Years) Aged Out No longer eligible based on patient's age to complete this topic RSV MONOCLONAL ANTIBODY Aged Out No l onger eligible based on patient's age to complete this topic Medical Devices Implanted Type Area Roll Up Helper Device Identifier Shelf Expiration Date Model / Serial / Lot Imp Breast 300ml Saline Round 350-1645 - [id number] Implanted:Qty : 1 on 05/21/2022 by Mickie Pearson MD at [facility] Breast Implant/Tiss ue Spray Gun Striper Left: Breast [employer] 08/13/2025 350-1645 / [id number] / [id number] Breast 300ml Saline Round 350-1645 - [id number] Implanted:Qty : 1 on 05/21/2022 by Mickie Pearson MD at [facility] Breast Implant/Tiss ue Spray Gun Striper Right: Breast [employer] 12/01/2025 350-1645 / [id number] / [id number] Procedures Procedure Name Priority Date/Time Associated Diagnosis Comments GLUCOSE (EXTERNAL RESULT) Routine 04/29/2022 8:55 AM CDT from Last 3 Months or Most Recently Relevant to Health Maintenance Results * Glucose (External Result) (04/29/2022 8:55 AM CDT) Glucose (External) 103 60 - 115 mg/dL [facility] Blood 04/29/2022 8:[address] [facility] - 04/29/2022 8:55 AM CDT LAB RESULTS ,[facility] Provider Outside LAB - HIM EXTERNAL R ESULT [facility] [address] [place] [address], [facility] [phone] from Last 3 Months or Most Recently Relevant to Health Maintenance Care Teams Preschool Paraprofessional Relationship Specialty Start Date End Date [facility]- [address] [place], [place] [id number] PCP - General 05/21/22
--- OUTSIDE RECORDS SUMMARY | 2023-12-29 08:57 | XMS_ITS | Clinical Summary ---
Author Organization [facility] Address [place], [place] [address] Care Team Providers Care Wind Energy Technician Name Role Phone Dianne Amin MD Primary Care Provider [phone] Allergies No known active allergies Medications Medication Sig Dispensed Refills Start Date End Date Status levonorgestrel-ethi nyl estrad, 0.1-20 mg-mcg, (LUTERA, 28,) 0.1-20 mg-mcg tablet Take 1 tablet by mouth once daily. 84 tablet 3 07/22/2011 Active ciprofloxacin (CIPRO) 250 mg tablet Take 1 tablet by mouth 2 times daily. As needed for severe diarrhea. 12 tablet 0 08/14/2011 Active nortriptyline (PAMELOR) 10 mg capsule TAKE 2 CAPSULES BY MOUTH EVERY NIGHT AT BEDTIME 180 capsule 1 12/28/2011 Active SUMAtriptan (IMITREX) 100 mg tablet Take 1 tablet by mouth every 2 hours if needed for Migraine. Max dose: 200mg per 24 hrs. 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) 08/17/2011 Need for hepatitis A vaccination 07/22/2011 Migraine 05/08/2009 Immunizations Name Administration Dates Next Due Hepatitis A (Adult) 07/22/2011 Tdap 12/19/2007 Family History Medical History Relation Name Comments Alcohol/Drug Father etoh Cancer Father skin cancer-madison anoma Cancer-prostate Father Diabetes Father Hypertension Father Cancer Maternal Grandmother ovarian cancer, Other Mother ovarian cyst, n ot cancer, had endometriosis Cancer-breast Other other great paternal GM age 99 Cancer-colon No Family History Relation Name Status Comments Father Maternal Grandmother Mother Other other Social History Tobacco Use Types Packs/Day Years Used Date Smoking Tobacco: Never Smokeless Tobacco: Never Alcohol Use Standard Drinks/Week Comments Yes 2.5 (1 standard drink = 0.6 oz p ure alcohol) occ. Sex and Gender Information Value Date Recorded Sex Assigned at Not on file Gender Identity Not on file Sexual Orientation Not on file Obstetrics History Para Term AB IAB SAB Ectopic Multiple Livin g Live Births 1 1 Date Outcome GA Total Labor Labor/2nd/3rd Weight Sex Type Anes PTL Nguyen A1 A5 Name Clin AB Last Filed Vital Signs Vital Sign Reading Time Taken Comments Blood Pressure 115/77 08/14/2011 8:01 AM WATERWORKS OPERATOR Pulse 66 08/14/2011 8:01 AM WATERWORKS OPERATOR Temperature 36.8 ??C (98.2 ??F) 07/21/2010 5:29 PM CS T Respiratory Rate - - Oxygen Saturation - - Inhaled Oxygen Concentration - - Weight 69.9 kg (154 lb) 08/14/2011 8:01 AM WATERWORKS OPERATOR Height 167.6 cm (5' 6) 07/22/2011 8:08 AM WATERWORKS OPERATOR Body Mass Index 24.86 07/22/2011 8:08 AM WATERWORKS OPERATOR Plan of Treatment Health Maintenance Due Date Last Done Comments Depression screening for age 12+ 1981 HIV for age 15-65 1984 BMI (ht and wt on same day) for age 18+ 1987 Hepatitis C screening for age 18-79 1987 Colonoscopy through age 75 2014 Mammogram for age 45-75 2014 01/15/2011 (Postp oned) Lipids for age 45-75 07/22/2016 07/22/2011 Tetanus booster 12/18/2017 12/19/2007 Zoster (shingles) series for age 50+ (1 of 2) 2019 COVID-19 vaccine series (2022- season) 2023 03/02/2022, 05/25/2021, 10/18/2020, Additional history exists Influenza for age 50-64 03/19/2024 Pap test for age 21-65 08/29/2024 2, 08/29/2021, 07/05/2020, Additional history exists Tdap Completed 12/19/2007 Pneumococcal series for age 6-64 Aged Out No longer eligible based on patient's age to complete this topic Procedures Procedure Name Priority Date/Time Associated Diagnosis Comments HPV THIN PREP Routine 08/29/2021 12:00 PM WATERWORKS OPERATOR LIPID PANEL Routine 07/22/2011 8:49 AM WATERWORKS OPERATOR Well woman exam from Last 3 Months or Most Recently Relevant to Health Maintenance Results * HPV HIGH RISK (08/29/2021 12:00 PM WATERWORKS OPERATOR) TYPE 16 Negative Negative 09/02/2021 12:13 PM WATERWORKS OPERATOR [facility] TYPE 18 Negative Negative 09/02/2021 12:13 PM WATERWORKS OPERATOR [facility] OTHER HIGH RISK TYPES Negative Negative 09/02/2021 12:13 PM WATERWORKS OPERATOR [facility] Other (Cervical/Vagina l) 08/29/2021 12:00 PM WATERWORKS OPERATOR 09/01/2021 8:19 AM WATERWORKS OPERATOR Narrative [facility] - 09/02/2021 12:13 PM WATERWORKS OPERATOR HPV types 16, 18, 31, 33, 35, 39, 45, 51, 52, 56, 58, 59, 66 and 68 DNA were undetectable or below the pre-set threshold. Methodology: Sarbjit Bhavin 4800 HPV Test Irasema Edwards MD MICROBIOLO GY [facility] [address] [place] [address], * LIPID PANEL (07/22/2011 8:49 AM WATERWORKS OPERATOR) CHOLESTEROL,TOTAL 170 110 - 199 mg/dL [facility] TRIGLYCERIDES 120 <150 mg/dL [facility] HDL CHOLESTEROL 59 >40 mg/dL [facility] CHOL/HDL RATIO 2.88 <4.51 [facility] LDL CHOLESTEROL 87 <131 mg/dL [facility] PATIENT STATUS Fasting [facility] Blood specimen (specimen) BLOOD SPECIMEN / Unknown 07/22/2011 8:49 AM WATERWORKS OPERATOR 07/22/2011 8:45 AM WATERWORKS OPERATOR Patty Ferimn MD CHEMISTRY [facility] [address] [place] [address] from Last 3 Months or Most Recently Relevant to Health Maintenance Care Teams Wind Energy Technician Relationship Specialty Start Date End Date Dianne Amin MD [address] [place] [address] PCP - General Internal Medicine 01/02/13
--- OUTSIDE RECORDS SUMMARY | 2023-12-29 08:57 | XMS_ITS ---
Author Organization [facility] Address [address] [place] [address] Care Team Providers Care Dump Truck Driver Off Highway Name Role Phone Unavailable Unavailable Unavailable Surgery Details Not on file Complications Check Surgery Details section. Procedure Estimated Blood Loss Check Surgery Details section. Procedure Findings Check Surgery Details section. Procedure Specimens Taken Check Surgery Details section.
--- OUTSIDE RECORDS SUMMARY | 2023-12-29 08:57 | XMS_ITS | Referral Summary ---
Author Organization [facility] Address [address] [place] [address] Care Team Providers Care Rotary Driller Helper Name Role Phone [facility]- Primary Care Provider Allergies No known active [...] 05/21/2022 6:12 AM CDT Plan of Treatment Not on file Medical Devices Implanted Type Area Train Electronic Technician Device Identifier Shelf Expiration Date Model / Serial / Lot Imp Breast 300ml Saline Round 350-1645 - [id number] Implanted:Qty : 1 on 05/21/2022 by Mickie Pearson MD at [facility] Breast Implant/Tiss ue Mine Environmental Engineer Left: Breast [employer] 08/13/2025 350-1645 / [id number] / [id number] Imp Breast 300ml Saline Round 350-1645 - [id number] Implanted:Qty : 1 on 05/21/2022 by Mickie Pearson MD at [facility] Breast Implant/Tiss ue Mine Environmental Engineer Right: Breast [employer] 12/01/2025 350-1645 / [id number] / [id number] Procedures Procedure Name Priority Date/Time Associated Diagnosis Comments GLUCOSE (EXTERNAL RESULT) Routine 04/29/2022 8:55 AM CDT from Last 3 Months or Most Recently Relevant to Health Maintenance Results * Glucose (External Result) (04/29/2022 8:55 AM CDT) Glucose (External) 103 60 - 115 mg/dL [facility] Blood 04/29/2022 8:55 AM CDT Narrative [facility] - 04/29/2022 8:55 AM CDT LAB RESULTS ,[facility] AND [facility] Provider Outside LAB - HIM EXTERNAL R ESULT Performing Organization Address [facility]/State/ZIP Co de Phone Number [facility] [address] [place] [address], [facility] [phone] from Last 3 Months or Most Recently Relevant to Health Maintenance Care Teams Rotary Driller Helper Relationship Specialty Start Date End Date [facility]- [address] [place] [address] PCP - General 05/21/22
--- OUTSIDE RECORDS SUMMARY | 2023-12-29 08:57 | XMS_ITS | Encounter Summary ---
Author Organization [facility] Address [address] [place] [address] Care Team Providers Care Lasting Machine Operator Hand Method Name Role Phone Unavailable Primary Care Provider Unavailabl e Reason for Visit * Reason Comments Med Refill Encounter Details Date Type Department Care Team ([facility] st Contact Info) Description 12/02/2023 Refill Division of Plastic Surgery in [place], [place] [address] [place] [address] Joe Barker M.D. [address] [place] [phone] Med Refill Social History Tobacco Use Types Packs/Day Years Used Date Smoking Tobacco: Never Smokeless Tobacco: Never Humiliation, Afraid, Rape, and Kick questionnair e Answer Date Recorded Within the last year, have y ou been afraid of your partner or ex-partner? No 04/14/2022 Within the last year, have y ou been humiliated or emotionally abused in other ways by your partner or ex-partner? No Within the last year, have y ou been kicked, hit, slapped, or otherwise physically hurt by your partner or ex-partner? No 04/14/2022 Within the last year, have y ou been raped or forced to have any kind of sexual activity by your partner or ex-partner? No 04/14/2022 Social Connection and Isolation Panel [NHANES] A nswer Date Recorded In a typical week, how many times do you talk on the phone with family, friends, or neighbors? Once a week 04/14/2022 How often do you get together with friends or re latives? Once a week 04/14/2022 How often do you attend jainism or anabaptism serv ices? Never 04/14/2022 Do you belong to any clubs o r organizations such as jainism groups, unions, fraternal or athletic groups, or school groups? No 04/14/2022 How often do you attend meet ings of the clubs or organizations you belong to? Never 04/14/2022 Are you , , di vorced, , never , or living with a partner? 04/14/2022 AUDIT-C Answer Date Recorded Q1: How often do you have a drink containing alc ohol? 2-3 times a week 04/14/2022 Q2: How many drinks containi ng alcohol do you have on a typical day when you are drinking? 1 or 2 04/14/2022 Q3: How often do you have si x or more drinks on one occasion? Never 04/14/2022 Overall Financial Resource Strain (CARDIA) Answe r Date Recorded How hard is it for you to pa y for the very basics like food, housing, medical care, and heating? Not hard at all 04/22/2023 [facility] - Occupational Stress Questionnaire Answer Date Recorded Do you feel stress - tense, restless, nervous, or anxious, or unable to sleep at night because your mind is troubled all the time - these days? Only a little 04/14/2022 Exercise Vital Sign Answer Date Recorde d On average, how many days pe r week do you engage in moderate to strenuous exercise (like a brisk walk)? 3 days 04/22/2023 On average, how many minutes do you engage in exercise at this level? 50 min 04/22/2023 Hunger Vital Sign Answer Date Recorded Within the past 12 months, y ou worried that your food would run out before you got the money to buy more. Never true 04/22/20 23 Within the past 12 months, t he food you bought just didn't last and you didn't have money to get more. Never true 04/22/2023 PRAPARE - Transportation Answer Date Re corded In the past 12 months, has l ack of transportation kept you from medical appointments or from getting medications? No 11/2022 In the past 12 months, has l ack of transportation kept you from meetings, work, or from getting things needed for daily living? No 04/22/2023 Nutrition Answer Date Recorded Nutrition: EVOO Fat Source No 04/22 On average, how many serving s of fruits and vegetables do you eat per day (serving size is equal to 1 cup or approximately the size of a tennis ball)? 0-2 04/22/2023 Dental Answer Date Recorded Dental: Regular Dentist Yes 04/14/20 Employment Answer Date Recorded Employment status Employed and actively working without restrictions 04/22/2023 Housing Stability Answer Date Recorded What is your living situation today? I have a [facility] place to live 04/22/2023 Education Answer Date Recorded What is the highest level of school you have completed or the highest degree you have received? Professional school degree (e.g., MD, DDS, DVM, DESTINI) 04/14/2022 Sex and Gender Information Value Date Recorded Sex Assigned at Female 04/14/2022 11:44 AM CDT Gender Identity Female 04/14/2022 11:44 AM CDT Sexual Orientation Straight 04/14/2022 11 :44 AM CDT documented as of this encounter Miscellaneous Notes * Telephone Encounter - Autumn Vines M.D. - 12/03/2023 11:41 AM CDT Not needed anymore documented in this encounter Plan of Treatment Not on file documented as of this encounter Visit Diagnoses Not on filedocumented in this encounter
--- OUTSIDE RECORDS SUMMARY | 2023-12-29 08:57 | XMS_ITS | Encounter Summary ---
Author Organization [facility] Address [address] [place] [address] Care Team Providers Care Low Pressure Firer Name Role Phone Unavailable Primary Care Provider Unavailabl e Reason for Visit * Outpatient (Routine) - Closed Specialty Diagnoses / Procedures Referred By Shy wilcox Referred To Contact Plastic Surgery Diagnoses ov Autumn Vines M.D. [address] [place] [phone] [facility] Referral ID Status Reason Start Date Expiration Date Visits Re quested Visits Authorized [id number] Closed 04/27/2023 11/09/2023 1 1 Encounter Details Date Type Department Care Team ([facility] st Contact Info) Description 11/09/2023 11:30 AM CDT Office Visit Division of Plastic Surgery in [place], [place] [address] [place] [phone] Autumn Vines M.D. 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 Never 04/14/2022 Do you belong to any clubs o r organizations such as tenriism groups, unions, fraternal or athletic groups, or [...] and heating? Not hard at all 04/22/2023 [facility] - Occupational Stress [...] your living situation today? I have a [facility] place to live 04/22/2023 Education Answer Date Recorded What is the highest level of school you have completed or the highest degree you have received? Professional school degree (e.g., , DDS, DVM, DESTINI) 04/14/2022 Sex and Gender Information Value Date Recorded Sex Assigned at Female 04/14/2022 11:44 AM CDT Gender Identity Female 04/14/2022 11:44 AM CDT Sexual Orientation Straight 04/14/2022 11 :44 AM CDT documented as of this encounter Last Filed Vital Signs Vital Sign Reading Time Taken Comments Blood Pressure - - Pulse - - Temperature - - Respiratory Rate - - Oxygen Saturation - - Inhaled Oxygen Concentration - - Weight 71.9 kg (158 lb 8.2 oz) 11/09/2023 11:31 AM CDT Height - - Body Mass Index 26.64 04/26/2023 10:30 AM CDT documented in this encounter Progress Notes * Jersey Holbrook M.D. - 11/09/2023 11:30 AM CDT SUBJECTIVE CHIEF COMPLAINT/REASON FOR VISIT Rylee Ogden is a 53 y.o. female who presents for evaluation. HISTORY OF PRESENT ILLNESS 53F h/o L breast cancer s/p lumpectomy/XRT completed on 08/05/22. On 05/19/22 patient underwent exchange of previously placed breast implants (Augmentation 1996) by Dr. Pearson at [facility] (Saline implants [place] 350-1645, left 375 ml, right 275 ml ) . She [facility] and discuss L breast superior pole fullness/hardness and associated breast asymmetry. Had been using Trental/Singulair. During last visit, discussed that left breast mound is demonstrating signs of radiation fibrosis onskin/subcutaneous tissue, and potentially breast implant capsule. She was has been using Trental. [facility]. Since last visit she feels the pain has improved but the induration is about the same. Wears 34 DD and happy with breast size. She is not sure that she would want surgery. She is ok with the cosmesis of the breasts, and would rather avoid surgery and keep the current look. The tenderness is tolerable at this point. Smoking: None Dvt: none AC Use: None PMHx: Migraines The following portions of the patient's history were reviewed and updated as appropriate: allergies, current medications, family history, medical history, social history, surgical history and problemlist. Social History Tobacco Use Smoking status: Never Smokeless tobacco: Never REVIEW OF SYSTEMS Negative except as noted in HPI OBJECTIVE PHYSICAL EXAM General: Awake, alert, no acute distress Right Breast: Negative for skin change, nipple discharge and inverted nipple. Grade [address], soft capsule Left Breast: Negative for skin change, nipple discharge and inverted nipple. Superior pole fullnesscaused by the palpable implant there. Radiation changes on the tissues within the breast frame. Breast tissue sliding inferiorly over the superiorly located implant. Bake 1 on the left breast, implant is sitting a little high Abdomen: ASSESSMENT / PLAN It was a pleasure to see the patient in clinic today. We discussed that if she is ok with the cosmesis and the tenderness has improved and is tolerable, we do not have to proceed with surgery. If thecosmesis is enough to bother her in the future, or if the fibrosis progresses or she develops capsular contracture such that it becomes bothersome from either a cosmesis or pain perspective we can kimi ssess a surgical intervention. She may discontinue Trental at this time. She doesn't need MRI at 5 years given she has saline implants in place. We discussed that on average, women need a procedure for implant exchange 10 years after implant placement. We are happy to see the patient back any time for re- assessment. Photos obtained today. We are happy to see the patient back any time. All patientquestions and concerns were answered to the best of our ability. The patient was seen and examined with Dr. Vines. * Adia Danielson R.N. - 11/09/2023 11:30 AM CDT Photos were obtained. She does not want surgery at this time. She currently has saline implants in place. She will reach out if she has concerns regarding her implants. All questions were answered atthis time. documented in this encounter Plan of Treatment Not on file documented as of this encounter Visit Diagnoses Diagnosis Malignant Neoplasm Of Unspecified Site Of Laterality Unknown Female Breast (HCC)- Primary documented in this encounter
--- OUTSIDE RECORDS SUMMARY | 2023-12-29 08:57 | XMS_ITS | Encounter Summary ---
Author Organization [facility] Address [address] [place] [address] Care Team Providers Care Administrative Analyst Name Role Phone Unavailable Primary Care Provider Unavailabl e Encounter Details Date Type Department Care Team ([facility] st Contact Info) Description 11/09/2023 Ancillary Procedure Department of Plastic and Reconstructive Surgery Social History Tobacco Use Types Packs/Day Years [...] week 04/14/2022 How often do you attend anabaptism or alevism serv ices? Never 04/14/2022 Do you belong to any clubs o r organizations such as anabaptism groups, unions, fraternal or athletic groups, or [...] and heating? Not hard at all 04/22/2023 [facility] Occupat ional Health - Occupational [...] your living situation today? I have a [facility] place to live 04/22/2023 Education Answer [...] on file documented as of this encounter Procedures Procedure Name Priority Date/Time Associated Diagnosis Comments PLASTIC AND RECON SURGERY IMAGE EXAM Routine 11/09/2023 12:00 AM CDT documented in this encounter Results * Breast-Plastic And Recon Surgery Image Exam (11/09/2023 12:00 AM CDT) Narrative IIMS - 11/09/2023 2:16 PM CDT This order has been created and auto-finalized to support the import of images acquired without order. The clinical documentation to support these images can be found on the encounter that produced images. Provider Not In System IMG NON RAD IMAGI NG PROCEDURES IIMS NA documented in this encounter Visit Diagnoses Not on filedocumented in this encounter
--- OUTSIDE RECORDS SUMMARY | 2023-12-29 08:57 | XMS_ITS | Referral Summary ---
Author Organization [facility] Address [address] [place] [address] Care Team Providers Care Bicycle Inspector Name Role Phone Unavailable Primary Care Provider Unavailabl e Source Comments Patient records contain information from all sites at [facility]. For routine questions regarding patient records, call [phone] during business hours, M-F 8:00 AM - 5:00 PM Central Time. Record requests for emergency care only can be directed to [phone] at any time.[facility] Encounters Date Type Department Care Team Description 12/02/2023 Refill Division of Plastic Surgery in [place], [place] [address] [place] [address] Joe Barker M.D. Med Refill 11/09/2023 Ancillary Procedure Department of Plastic and Reconstructive Surgery 11/09/2023 11:30 AM CDT Office Visit Division of Plastic Surgery in [place], [place] [address] [place] [address] Autumn Vines M.D. Malignant Neoplasm Of Unspecified Site Of Laterality Unknown Female Breast (HCC) (Primary Dx) from Last 3 Months Allergies No known active allergies Medications Medication Sig Dispensed Refills Start Date End Date Status FLUTICASONE PROPIONATE NASAL Administer 1 spray into each nostril as needed. 03/04/2022 Active nortriptyline HCl (NORTRIPTYLINE ORAL) Take 20 mg by mouth daily. Active naratriptan (AMERGE) 2.5 mg tablet Take 2.5 mg by mouth daily. Active tamoxifen (NOLVADEX) 20 mg tablet Take 20 mg by mouth as directed. 04/08/2022 Active montelukast (SINGULAIR) 10 mg tablet Take 1 tablet (10 mg total) by mouth at bedtime. 30 tablet 5 04/26/2023 Active ciprofloxacin (CIPRO) 250 mg tablet Take 250 mg by mouth. 08/14/2011 Active eletriptan (RELPAX) 40 mg tablet 09/15/2023 Active magnesium oxide (MAG-OX) 400 mg (241.3 mg magnesium) tablet Take 1 tablet by mouth 2 (two) times a day. 09/23/2023 Active pentoxifylline (TRENtal) 400 mg ER tablet PENTOXIFYLLINE ER 400 MG CR-TABS 05/10/2023 Active rizatriptan ADMINISTRATIVE JUDGE (MAXALT-ADMINISTRATIVE JUDGE) 10 mg disintegrating tablet 08/29/2023 Active rizatriptan ADMINISTRATIVE JUDGE (MAXALT-ADMINISTRATIVE JUDGE) 10 mg disintegrating tablet 08/09/2023 Active sennosides-docusate sodium (SENOKOT-S) 8.6-50 mg per tablet Take 1-2 tablets by mouth. 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 Never 04/14/2022 Do you belong to any clubs o r organizations such as mandaen groups, unions, fraternal or athletic groups, or [...] and heating? Not hard at all 04/22/2023 [facility]ational Stress Questionnaire Answer Date [...] money to buy more. Never true 04/22/20 Within the past 12 months, t he [...] your living situation today? I have a [facility] place to live 04/22/2023 Education Answer [...] Orientation Straight 04/14/2022 11 :44 AM CDT Last Filed Vital Signs Vital Sign Reading Time Taken Comments Blood Pressure 144/82 08/05/2022 9:22 AM WEB COORDINATOR Pulse 57 08/05/2022 9:22 AM WEB COORDINATOR Temperature 36.2 ??C (97.2 ??F) 08/05/2022 9:22 AM CS T Respiratory Rate - - Oxygen Saturation - - Inhaled Oxygen Concentration - - Weight 71.9 kg (158 lb 8.2 oz) 11/09/2023 11:31 AM CDT Height 164.3 cm (5' 4.69) 04/26/2023 10:30 AM C DT Body Mass Index 26.64 04/26/2023 10:30 AM CDT Plan of Treatment Not on file Medical Devices Implanted Type Area Bridge Builder Device Identifier Shelf Expiration Date Model / Serial / Lot Breast Implant Breast Implant Bilateral: Breast Procedures Procedure Name Priority Date/Time Associated Diagnosis Comments PLASTIC AND RECON SURGERY IMAGE EXAM Routine 11/09/2023 12:00 AM CDT EXTI GLUCOSE, RANDOM, S/P Routine 04/29/2022 8:55 AM CDT OUTSIDE MG MAMMOGRAM Routine 03/19/2022 10:45 AM CDT from Last 3 Months or Most Recently Relevant to Health Maintenance Results * Breast-Plastic And Recon Surgery Image Exam (11/09/2023 12:00 AM CDT) Narrative IIMS - 11/09/2023 2:16 PM CDT This order has been created and auto-finalized to support the import of images acquired without order. The clinical documentation to support these images can be found on the encounter that produced images. Provider Not In System IMG NON RAD IMAGI NG PROCEDURES Performing Organization Address [facility] Co de Phone Number IIMS NA * MM surgical specimen LT-Outside Mammogram (03/19/2022 10:45 AM CDT) Narrative IIMS - 04/09/2022 3:04 PM CDT This order has been created and auto-finalized to support the import of outside images. If available, original interpretation can be found on the Media Tab in Chart Review, in Document Viewer, or as an image in QREADS. If a re-interpretation or overread is required please follow defined workflow. ?? Provider Not In System IMG BI PROCEDURES Performing Organization Address [facility] Co de Phone Number IIMS NA from Last 3 Months or Most Recently Relevant to Health Maintenance
--- OUTSIDE RECORDS SUMMARY | 2023-12-29 08:57 | XMS_ITS ---
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 Past Plans No past plan information found. Radiation Treatments * Plan Last Treated On Elapsed Days Fractions Treated Prescribed Fraction Dose Prescribed Total Dose [id number] 08/06/2022 36 25 of 25 200 cGy 5,000 cGy Reference Point Last Treated On Elapsed Days Session Dose Total Dose [id number] 08/06/2022 36 200 cGy 5,000 cGy
--- OUTSIDE RECORDS SUMMARY | 2023-12-29 08:57 | XMS_ITS | Clinical Summary ---
Author Organization [facility] Address [address] [place] [address] Care Team Providers Care Dial Polisher Name Role Phone Unavailable Primary Care Provider Unavailabl e Source Comments Patient records contain information from all sites at [facility]. For routine questions regarding patient records, call [phone] during business hours, M-F 8:00 AM - 5:00 PM Central Time. Record requests for emergency care only can be directed to [phone] at any time.[facility] Allergies No known active allergies Medications [...] ER 400 MG CR-TABS 05/10/2023 Active rizatriptan HOME LENDING OFFICER (MAXALT-HOME LENDING OFFICER) 10 mg disintegrating tablet 08/29/2023 Active rizatriptan HOME LENDING OFFICER (MAXALT-HOME LENDING OFFICER) 10 mg disintegrating tablet 08/09/2023 Active sennosides-docusate sodium (SENOKOT-S) 8.6-50 mg per tablet Take 1-2 tablets by mouth. 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 Med Refill 11/09/2023 11:30 AM CDT Office Visit Division of Plastic Surgery in [place], [place] [address] [place] [address] Autumn Vines M.D. Malignant Neoplasm Of Unspecified Site Of Laterality Unknown Female Breast (HCC) (Primary Dx) 11/09/2023 Ancillary Procedure Department of Plastic and Reconstructive Surgery from Last 3 Months Family History Medical History Relation Name Comments Skin cancer Father Ovarian cancer Maternal Grandmother Relation Name Status Comments Father Maternal Grandmother Other paternal great grandmother had breast cancer and lived to [facility] Social History Tobacco Use Types Packs/Day Years [...] ways by your partner or ex-partner? No 09 / Within the last year, have y ou [...] How often do you attend anabaptism or voodoo serv ices? Never 04/14/2022 Do you belong [...] and heating? Not hard at all 04/22/2023 [facility] Occupat ional Health - Occupational Stress [...] your living situation today? I have a [facility] place to live 04/22/2023 Education Answer Date [...] Comments Blood Pressure 144/82 08/05/2022 9:22 AM VENEER PULLER Pulse 57 08/05/2022 9:22 AM VENEER PULLER Temperature 36.2 ??C (97.2 ??F) 08/05/2022 9:22 AM CS T Respiratory Rate - - Oxygen Saturation - - Inhaled Oxygen Concentration - - Weight 71.9 kg (158 lb 8.2 oz) 11/09/2023 11:31 AM CDT Height 164.3 cm (5' 4.69) 04/26/2023 10:30 AM C DT Body Mass Index 26.64 04/26/2023 10:30 AM CDT Plan of Treatment Health Maintenance Due Date Last Done Comments CT Colonography 1969 Cervical Cancer Screening 1969 Colonoscopy 1969 FIT 1969 HIV Screening 1969 Hepatitis C Screening 1969 Lipid (Cholesterol) Screening 1969 Pneumococcal vaccine (0-64 years) (1 of 2 - PCV) 1975 Hepatitis B Vaccines (1 of 3 - 19+ 3-dose series) 1988 Mammogram 03/19/2023 03/19/2022, 09/0 07/2021, 02/25/2022, Additional history exists Depression Screening (Annual PHQ-2) 07/19/2023 Cologuard 11/07/2023 11/06/2020 Colorectal Cancer Screening 11/07/2023 Fasting Glucose for Diabetes Screening 04/29/2025 04/29/2022 DTaP,Tdap,and Td Vaccines (3 - Td or Tdap) 08/29/2031 08/29/2021, 12/19/2007 Zoster Vaccines Completed 11/06/2021, 06/19/2021 COVID-19 Vaccine Completed 08/19/2023, , 03/02/2022, Additional history exists Influenza Vaccine Completed 08/19/2023, , 04/09/2021, Additional history exists HPV Vaccines Aged Out No longer eligi ble based on patient's age to complete this topic Medical Devices Implanted Type Area Enrobing Machine Feeder Device Identifier Shelf Expiration Date Model / [...] NG PROCEDURES Performing Organization Address [facility] Co de Phone Number IIMS [...] BI PROCEDURES Performing Organization Address [facility] de Phone Number IIMS NA from Last 3 Months or Most Recently Relevant to Health Maintenance
== END 2023-12-29 08:54 | disposition home or self-care (01) ==
PROVIDERS: PCP Internal Medicine; Visit Provider Physician Assistant
DX: Z01.419 Encounter for gynecological examination (general) (routine) without abnormal findings (principal); Z13.6 Encounter for screening for cardiovascular disorders; Z13.1 Encounter for screening for diabetes mellitus
CPT/HCPCS: 80061; 82947

== ENCOUNTER 2024-05-18 15:11 | Outpatient (CLI) | payer OTHER, SELFPAY ==
--- OUTSIDE RECORDS SUMMARY | 2024-05-18 15:14 | XMS_ITS | Clinical Summary ---
Author Organization [facility] Address [place], [place] [address] Care Team Providers Care Data Typist Name Role Phone Dianne Amin MD Primary Care Provider [phone] Allergies No known active allergies Medications Medication [...] Comments Blood Pressure 115/77 08/14/2011 8:01 AM JEWELRY MAKING INSTRUCTOR Pulse 66 08/14/2011 8:01 AM JEWELRY MAKING INSTRUCTOR Temperature 36.8 ??C (98.2 ??F) 07/21/2010 5:29 PM CS T Respiratory Rate - - Oxygen Saturation - - Inhaled Oxygen Concentration - - Weight 69.9 kg (154 lb) 08/14/2011 8:01 AM JEWELRY MAKING INSTRUCTOR Height 167.6 cm (5' 6) 07/22/2011 8:08 AM JEWELRY MAKING INSTRUCTOR Body Mass Index 24.86 07/22/2011 8:08 AM JEWELRY MAKING INSTRUCTOR Plan of Treatment Health Maintenance Due Date [...] (1 of 2) 2019 COVID-19 vaccine series (2023- season) 2024 03/02/2022, 05/25/2021, 10/18/2020, Additional history exists Influenza for age 50-64 03/19/2024 Pap test for age 21-65 12/28/2026 4, 12/29/2023, 08/29/2021, Additional history exists Tdap Completed 12/19/2007 Pneumococcal series for age 6-64 Aged Out No longer eligible based on patient's age to complete this topic Procedures Procedure Name Priority Date/Time Associated Diagnosis Comments HPV HIGH RISK Routine 12/29/2023 9:15 AM CDT LIPID PANEL Routine 07/22/2011 8:49 AM JEWELRY MAKING INSTRUCTOR Well woman exam from Last 3 Months or Most Recently Relevant to Health Maintenance Results * HPV HIGH RISK (12/29/2023 9:15 AM CDT) TYPE 16 Negative Negative 01/01/2024 2:19 PM CDT [facility] TYPE 18 Negative Negative 01/01/2024 2:19 PM CDT [facility] OTHER HIGH RISK TYPES Negative Negative 01/01/2024 2:19 PM CDT [facility] Other (Cervical) 12/29/2023 9:15 AM CDT 12/30/2023 1:50 PM CDT Narrative [facility] - 01/01/2024 2:19 PM CDT HPV types 16, 18, 31, 33, 35, 39, 45, 51, 52, 56, 58, 59, 66 and 68 DNA were undetectable or below the pre-set threshold. Methodology: Sarbjit Bhavin 4800 HPV Test October Dina WATKINS MICROBIOLOGY [facility] [address] [place] [id number], * LIPID PANEL (07/22/2011 8:49 AM JEWELRY MAKING INSTRUCTOR) CHOLESTEROL,TOTAL 170 110 - 199 mg/dL [facility] TRIGLYCERIDES 120 <150 mg/dL [facility] HDL CHOLESTEROL 59 >40 mg/dL [facility] CHOL/HDL RATIO 2.88 <4.51 [facility] LDL CHOLESTEROL 87 <131 mg/dL [facility] PATIENT STATUS Fasting [facility] Blood specimen (specimen) BLOOD SPECIMEN / Unknown 07/22/2011 8:49 AM JEWELRY MAKING INSTRUCTOR 07/22/2011 8:45 AM JEWELRY MAKING INSTRUCTOR Patty Fermin MD CHEMISTRY [facility] [address] [place] [address] from Last 3 Months or Most Recently Relevant to Health Maintenance Care Teams Data Typist Relationship Specialty Start Date End Date Dianne Amin MD [address] [place] [address] PCP - General Internal Medicine 01/02/13
--- OUTSIDE RECORDS SUMMARY | 2024-05-18 15:14 | XMS_ITS | Clinical Summary ---
Author Organization [facility] Address [address] [place] [address] Care Team Providers Care International Trade Analyst Name Role Phone [facility]- Primary Care Provider Allergies No known active allergies Medications nortriptyline (PAMELOR) 10 MG capsule Take 20 mg by mouth At Bedtime Active naratriptan (AMERGE) 2.5 MG tablet Take 2.5 mg by mouth at onset of headache for migraine Take 1/2 tablet Active oxyCODONE (ROXICODONE) 5 MG tabletIndicatio ns:Status post surgery Take 1-2 tablets (5-10 mg) by mouth every 4 hours as needed for moderate to severe pain 12 tablet 2 Active senna-docusate (SENOKOT-S/RENNY COLACE) 8.6-50 MG tabletIndicatio ns:Status post surgery Take 1-2 tablets by mouth 2 times daily as needed for constipation (while taking oxycodone) 20 tablet 2 Active Social History Tobacco Use Types Packs/Day Years Used Date Smoking Tobacco: Never Smokeless Tobacco: Never Tobacco Cessation:Counseling Given: Not Answered Alcohol Use Standard Drinks/Week Comments Yes 0 (1 standard drink = 0.6 oz pur e alcohol) 2-3 drinks per week Adolescent Education Answer Date Record ed Getting School Help Needed Not on file 04/10 Comments No Sex and Gender Information Value Date Recorded Sex Assigned at Not on file Legal Sex Female 11:51 AM CDT Gender Identity Not on file Sexual Orientation [...] 3-dose series) 1988 PAP 1990 LIPID 2009 PHQ-2 (once per calendar year) 2023 COVID-19 Vaccine ( season) 2024 03/02/2022, 05/25/2021, 10/18/2020, Additional history exists INFLUENZA VACCINE (#1) 2024 1, 04/17/2020, 04/26/2019, Additional history exists GLUCOSE 04/29/2025 04/29/2022 DTAP/TDAP/TD IMMUNIZATION (3 - Td or Tdap) 08/29/2031 08/29/2021, 12/19/2007 RSV VACCINE (1 - 1-dose 75+ series) 2044 ZOSTER IMMUNIZATION Completed 11/06/2021, HPV IMMUNIZATION Aged [...] this topic Medical Devices Implanted Type Area Boiler Riveter Device Identifier Shelf Expiration Date Model / Serial / Lot Imp Breast 300ml Saline Round 350-1645 - [id number] Implanted:Qty : 1 on 05/21/2022 by Mickie Pearson MD at [facility] Breast Implant/Tiss ue Rn Telephonic Left: Breast MENTOR [employer] 08/13/2025 350-1645 / [id number] / [id number] Imp Breast 300ml Saline Round 350-1645 - [id number] Implanted:Qty : 1 on 05/21/2022 by Mickie Pearson MD at [facility] Breast Implant/Tiss ue Rn Telephonic Right: Breast MENTOR [employer] 12/01/2025 350-1645 / [id number] / [id number] Procedures Procedure Name Priority Date/Time Associated Diagnosis Comments GLUCOSE (EXTERNAL RESULT) Routine 04/29/2022 8:55 AM CDT from Last 3 Months or Most Recently Relevant to Health Maintenance Results * Glucose (External Result) (04/29/2022 8:55 AM CDT) Glucose (External) 103 60 - 115 mg/dL [facility] Blood 04/29/2022 8:55 AM CDT Narrative [facility] - 04/29/2022 8:55 AM CDT LAB RESULTS ,[facility] us Provider Outside LAB - HIM EXTERNAL RESULT Final Result [facility] [address] [place] [address], [facility] [phone] from Last 3 Months or Most Recently Relevant to Health Maintenance Insurance [employer] SoftwareCHRISTUS ST. VINCENT PHYSICIANS MEDICAL CENTERCertus Group Care Teams International Trade Analyst Relationship Specialty Start Date End Date [facility]- [address] [place] [address] PCP - General 05/21/22
--- OUTSIDE RECORDS SUMMARY | 2024-05-18 15:14 | XMS_ITS | Referral Summary ---
Author Organization [facility] Address [address] [place] [address] Care Team Providers Care Extractor Puller Name Role Phone [facility]- Primary Care Provider Allergies No [...] on file Medical Devices Implanted Type Area Saxophone Player Device Identifier Shelf Expiration Date Model / Serial / Lot Imp Breast 300ml Saline Round 350-1645 - [id number] Implanted:Qty : 1 on 05/21/2022 by Mickie Pearson MD at [facility] Breast Implant/Tiss ue Medical Data Analyst Left: Breast MENTOR [employer] 08/13/2025 350-1645 / [id number] / [id number] Imp Breast 300ml Saline Round 350-1645 - [id number] Implanted:Qty : 1 on 05/21/2022 by Mickie Pearson MD at [facility] Breast Implant/Tiss ue Medical Data Analyst Right: Breast MENTOR [employer] 12/01/2025 350-1645 / [id number] / [id number] Procedures Procedure Name Priority Date/Time Associated Diagnosis [...] - 04/29/2022 8:55 AM CDT LAB RESULTS ,[facility] us Provider Outside LAB - HIM EXTERNAL RESULT Final Result [facility] [address] [place] [address], [facility] [phone] from Last 3 Months or Most Recently Relevant to Health Maintenance Insurance [employer] Care Teams Extractor Puller Relationship Specialty Start Date End Date [facility]- [address] [place] [address] PCP - General 05/21/22
--- NOTE | 2024-05-18 15:20 | CRLHL7_ITS ---
For Patients: As a result of the Century Cures Act, medical imaging exams and procedure reports are released immediately into your electronic medical record. You may view this report before your referring provider. If you have questions, please contact your health care provider. BILATERAL SCREENING MAMMOGRAM WITH COMPUTER-AIDED DETECTION AND TOMOSYNTHESIS TECHNIQUE: CC and MLO views were obtained. These mammographic images have been obtained using full-field digital technique. These mammographic images were interpreted with the benefit of computer-aided detection. Breast Tomosynthesis was used in this interpretation. COMPARISON FILM: 04/20/23, 12/03/22, 02/18/22. FINDINGS: The breasts are heterogeneously dense, which may obscure small masses IMPRESSION: There is no radiographic evidence for malignancy. ASSESSMENT: BI-RADS Category 2: Benign RECOMMENDATION: Routine screening mammogram in 1 year. A lay language report of this examination will be provided to the patient. Noman Srivastava M.D. Diagnostic Radiologist [email or web address] SAMM/deisy / bM/Dictated by: Noman Srivastava MD @ 05/19/2024 11:00:00 AM (Electronically Signed)
== END 2024-05-18 15:12 | disposition home or self-care (01) ==
PROVIDERS: PCP Internal Medicine; Visit Provider Internal Medicine
DX: Z12.31 Encounter for screening mammogram for malignant neoplasm of breast (principal); R92.333 Mammographic heterogeneous density, bilateral breasts
CPT/HCPCS: 77063; 77067

== ENCOUNTER 2024-05-24 13:00 | Outpatient (RCR) | payer OTHER, SELFPAY ==
--- NOTE | 2024-05-29 14:19 | ONC.NURNOTE ---
Patient called with questions about her Magnesium Oxide dose. Patient states that in the Migrelief medication that she takes, it has Magnesium 180 mg per tablet and she takes it BID. Patient is concerned about taking both the Magnesium we prescribed and her Migrelief. I reviewed patients concerns with Dr. Daniels. Patient informed that it would be okay to take both medications but she likely will have diarrhea. Patient plans to continue taking her Migrelief and will reduce the Magnesium we ordered to daily.
== END 2024-07-03 23:59 | disposition home or self-care (01) ==
LOC: CCIC 13:00
PROVIDERS: PCP Internal Medicine; Visit Provider Internal Medicine Hematology & Oncology
DX: C50.912 Malignant neoplasm of unspecified site of left female breast (principal); Z17.0 Estrogen receptor positive status [ER+]; Z79.810 Long term (current) use of selective estrogen receptor modulators (SERMs); R23.2 Flushing
CPT/HCPCS: 99214; G0463

== ENCOUNTER 2024-09-27 13:00 | Outpatient (RCR) | payer OTHER, SELFPAY | END 2025-01-04 10:16 | disposition home or self-care (01) | PROVIDERS: PCP Internal Medicine; Visit Provider Internal Medicine | DX: M25.561 Pain in right knee (principal); M25.562 Pain in left knee; Z51.89 Encounter for other specified aftercare | CPT/HCPCS: 97110; 97161; 97530 ==

== ENCOUNTER 2024-12-20 14:00 | Outpatient (RCR) | payer OTHER, SELFPAY ==
[2024-09-20 15:54] LABS: Albumin* 4.3 g/dL (3.3-5.0)
[2024-09-20 15:57] LABS: Alanine Aminotransferase* 21 U/L (4-35); Alkaline Phosphatase* 88 U/L (40-150); Aspartate Amino Transferase* 29 U/L (12-35); Bilirubin Direct* 0.2 mg/dL (0.0-0.5); Bilirubin Total* 0.2 mg/dL (0.1-1.5); Total Protein* 7.0 g/dL (6.0-8.3)
--- NOTE | 2024-11-20 10:16 | ONC.NURNOTE ---
Pt called to request a refill on her Veozah. She has a few pills left but is leaving town on Wednesday so would like to get it filled this week. Also of note, pt would like her new script sent to [facility] (not [facility]).
[2024-12-20 14:38] LABS: Albumin* 4.0 g/dL (3.3-5.0)
[2024-12-20 14:41] LABS: Alanine Aminotransferase* 16 U/L (4-35); Alkaline Phosphatase* 69 U/L (40-150); Aspartate Amino Transferase* 28 U/L (12-35); Bilirubin Direct* 0.2 mg/dL (0.0-0.5); Bilirubin Total* 0.4 mg/dL (0.1-1.5); Total Protein* 6.5 g/dL (6.0-8.3)
== END 2025-03-19 23:59 | disposition home or self-care (01) ==
LOC: CCIC 14:00
PROVIDERS: PCP Internal Medicine; Referring Provider Internal Medicine; Visit Provider Internal Medicine Hematology & Oncology
DX: C50.912 Malignant neoplasm of unspecified site of left female breast (principal); Z17.0 Estrogen receptor positive status [ER+]; Z79.810 Long term (current) use of selective estrogen receptor modulators (SERMs); R23.2 Flushing; Z51.81 Encounter for therapeutic drug level monitoring; Z79.899 Other long term (current) drug therapy
CPT/HCPCS: 36415; 80076; 99213; 99214; G0463

== ENCOUNTER 2025-06-12 14:44 | Outpatient (CLI) | payer OTHER, SELFPAY ==
--- NOTE | 2025-06-12 15:00 | CRLHL7_ITS ---
For Patients: As a result of the Century Cures Act, medical imaging exams and procedure reports are released immediately into your electronic medical record. You may view this report before your referring provider. If you have questions, please contact your health care provider. INDICATION: BILATERAL SCREENING MAMMOGRAM, ASYMPTOMATIC 55 Y/O FEMALE COMPARISON: 05/18/24, 04/20/23, 12/03/22 TECHNIQUE: Digital mammogram in CC and MLO projections including computer-aided detection (CAD) and tomosynthesis. BREAST COMPOSITION: There are scattered areas of fibroglandular density. FINDINGS: No suspicious findings. There are bilateral breast implants. ASSESSMENT: BI-RADS 2 Benign RECOMMENDATION: Annual screening mammogram. A lay language report of this examination will be provided to the patient. Dictated by: Monica Avitia MD @ 06/13/2025 20:48:31 (Electronically Signed)
== END 2025-06-12 14:45 | disposition home or self-care (01) ==
LOC: MAMMO 14:45
PROVIDERS: PCP Internal Medicine; Visit Provider Internal Medicine Hematology & Oncology
DX: Z12.31 Encounter for screening mammogram for malignant neoplasm of breast (principal); Z98.82 Breast implant status
CPT/HCPCS: 77063; 77067